=== PATIENT | female | born 1945 | race Caucasian/White ===

== ENCOUNTER → 2018-03-22 12:07 | Outpatient (CLI) | payer MEDICARE, OTHER, SELFPAY | DX: Z23 Encounter for immunization (principal) | CPT/HCPCS: 90471; 90662 ==

== ENCOUNTER → 2018-03-23 15:00 | Outpatient (REF) | payer MEDICARE, OTHER, SELFPAY ==
[2018-03-23 18:15] LABS: Alanine Aminotransferase 45 IU/L (9-52); Aspartate Aminotransferase 30 IU/L (14-36); BUN Creatinine Ratio 27.5 (6-22); Blood Urea Nitrogen 22 mg/dL (7-17); Calcium 9.6 mg/dL (8.4-10.2); Carbon Dioxide 32 mmol/L (22-32); Chloride 101 mmol/L (98-107); Cholesterol 179 mg/dL (140-199); Estimated Glomerular Filt Rate > 60.0 mL/min (>60); Glucose 88 mg/dL (80-110); HDL Cholesterol 65 mg/dL (40-60); HEMOLYSIS < 15 (0-50); LDL Cholesterol Calculated 87 mg/dL (<100); Potassium 4.3 mmol/L (3.4-5.1); Sodium 145 mmol/L (137-145); Triglycerides 135 mg/dL (35-150)
[2018-03-23 18:45] LABS: TSH w/ Reflex to FT4 1.11 uIU/mL (0.47-4.68)
== END ==
LOC: LAB 15:00
PROVIDERS: Family Provider Internal Medicine; PCP Internal Medicine; Visit Provider Internal Medicine
DX: E78.2 Mixed hyperlipidemia (principal)
CPT/HCPCS: 80048; 80061; 84443; 84450; 84460

== ENCOUNTER → 2019-03-05 08:46 | Outpatient (CLI) | payer MEDICARE, OTHER, SELFPAY ==
--- NOTE | 2019-03-05 | DI.MG.S_ITS ---
BILATERAL DIGITAL SCREENING MAMMOGRAM 3D/2D WITH CAD: 03/05/2019 CLINICAL: Routine screening. Comparison is made to exams dated: 04/06/2014 mammogram, 04/29/2010 mammogram, and 02/03/2008 mammogram - [facility]. There are scattered fibroglandular elements in both breasts. Current study was also evaluated with a Computer Aided Detection (CAD) system. No significant masses, calcifications, or other findings are seen in either breast. There has been no significant interval change. IMPRESSION: NEGATIVE There is no mammographic evidence of malignancy. A 1 year screening mammogram is recommended. This exam was interpreted at Station ID: [id number]. NOTE: For mammograms, a report in lay terms will be sent to the patient. Approximately 15% of breast malignancies will not be visualized mammographically. In the management of a palpable breast mass, a negative mammogram must not discourage biopsy of a clinically suspicious lesion. Electronically Signed By: Jennifer moss/linda:03/07/2019 08:37:21 letter sent: Normal Exam ACR BI-RADS Category 1: Negative [id number]
== END ==
PROVIDERS: PCP Internal Medicine; Visit Provider Internal Medicine
DX: Z12.31 Encounter for screening mammogram for malignant neoplasm of breast (principal)
CPT/HCPCS: 77063; 77067

== ENCOUNTER → 2019-03-08 14:56 | Outpatient (CLI) | payer MEDICARE, OTHER, SELFPAY | PROVIDERS: PCP Internal Medicine | DX: Z23 Encounter for immunization (principal) | CPT/HCPCS: 90471; 90662 ==

== ENCOUNTER → 2019-04-13 18:47 | Outpatient (ROUT) | payer MEDICARE, OTHER, SELFPAY ==
[2019-04-13 19:30] LABS: Alanine Aminotransferase 26 IU/L (<35); Aspartate Aminotransferase 29 IU/L (14-36); Blood Urea Nitrogen 20 mg/dL (7-17); Calcium 9.9 mg/dL (8.4-10.2); Carbon Dioxide 32 mmol/L (22-32); Chloride 102 mmol/L (98-107); Cholesterol 179 mg/dL (140-199); Estimated Glomerular Filt Rate > 60.0 mL/min (>60); Glucose 144 mg/dL (80-110); HDL Cholesterol 73 mg/dL (40-60); HEMOLYSIS < 15 (0-50); LDL Cholesterol Calculated 85 mg/dL (<100); Potassium 4.2 mmol/L (3.4-5.1); Sodium 142 mmol/L (137-145); Triglycerides 104 mg/dL (35-150)
[2019-04-13 20:48] LABS: TSH w/ Reflex to FT4 1.84 uIU/mL (0.47-4.68)
== END ==
PROVIDERS: PCP Internal Medicine; Visit Provider Internal Medicine
DX: I10 Essential (primary) hypertension (principal); E03.9 Hypothyroidism, unspecified; E78.2 Mixed hyperlipidemia
CPT/HCPCS: 80048; 80061; 84443; 84450; 84460

== ENCOUNTER → 2019-05-23 17:20 | Outpatient (CLI) | payer MEDICARE, OTHER, SELFPAY | PROVIDERS: PCP Internal Medicine; Visit Provider Physician Assistant | DX: N30.01 Acute cystitis with hematuria (principal) | CPT/HCPCS: 87077; 87086; 87186 ==

== ENCOUNTER 2019-10-27 10:30 | Outpatient (RCR) | payer MEDICARE, OTHER, SELFPAY ==
--- NOTE | 2019-07-08 17:36 | PT.OIE ---
Current Diagnoses Stiffness of right hip, not elsewhere classified (07/08/19) Muscle weakness (generalized) (07/08/19) Mixed incontinence (07/08/19) Unspecified urinary incontinence (07/08/19) Past Medical History (Last Updated 07/02/19 @ 20:40 by Jolie Montana) Colon polyps (Acute) Diverticular disease (Chronic) Frequent UTI (Chronic) Gynecologic disorder (Chronic) H/O vaginal delivery (Acute) Lichen planus (Chronic) Positive PPD (Resolved) Urinary urgency (Chronic) Vision disorder (Chronic) Past Surgical History (Last Updated 07/02/19 @ 20:40 by Jolie Montana) Anesthesia (Resolved) History of colonoscopy (Resolved) Status post surgery (03/10/13) Superficial varicosities (Resolved) Visit Care Team Role Provider Type [place] Givens MD Primary Care Provider Physician Specialty: Internal Medicine Address: [address] [place] [address] Email: [email or web address] Yulisa Lai MD Attending Provider Physician Referring Provider Specialty: GAME BREEDING FARM MANAGER Address: [address] [place] [address], [facility] Email: Physical Therapy Initial Evaluation PT-OP-A Visit Information Start: 07/05/19 17:49 Freq: Status: Active Protocol: Document 07/08/19 15:13 LRN (Rec: 07/08/19 17:26 LRN [id number]) Out-Patient Physical Therapy Visit Information Visit Information Visit Type Initial Evaluation Visit Start Time 15:16 Visit Stop Time 16:16 Total Visit Minutes 60 Visit Number 1 Evaluation Information Evaluation Date 07/08/19 Precautions Precautions Lichen Planus on body and arms /legs from Autoimmune disease, uses cream to control rash but skin itches. PT-OP-B Current Condition Start: 07/05/19 17:49 Freq: Status: Active Protocol: Document 07/08/19 15:13 LRN (Rec: 07/08/19 17:26 LRN [id number]) Current Condition History of Current Condition Onset Date 2 months ago. Current Complaints Bulge in vagina History of Current Condition Lifted furniture for 2 months ago and felt a bulge in vagina . Recently began having UTI's . Currently no UTI, last time was in Dec. Last year UTI's 2-3 times. Now urinates with intermittent peeing, occasionally wets pants trying to get to bathroom; therefore getting anxiety about that. Cold all the time, taking thyroid medications for hypothyroidism . Developmental History Developmental History History: 2 pregnancies and both precepts (quick birthing). Had massage to perineum before birthing; therefore doesn't recall tearing. Has had several urinary tract infections. Lifted furniture 2 months ago and felt vaginal bulge. Treatment Goals Patient/Caregiver Goals Pt goal is to prevent UTI's and to urinate better. Pt goal is to eliminate the bladder bulge. Prior Functional Status Baseline Function- ADL's Independent Baseline Function- Mobility Independent Baseline Function- Other Able to sit and urinate completely. Previously no history of UTI's . Current Functional Impairments (Reported) Functional Limitations- ADL's Lifting due to bulge feeling. Must sit and adjust to fully urinate. Slow trickle urinary stream taking longer to completely urinate. 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 History of hip rotation ROM limitations. PT-OP-C Subjective Start: 07/05/19 17:49 Freq: Status: Active Protocol: Document 07/08/19 15:13 LRN (Rec: 07/08/19 17:26 LRN [id number]) OP-PT Pain Assessment Pain Assessment Grid Paper Pain Assessment Grid Completed Yes Comments Pain Comments Denies pain. Subjectively reports pain with palpation at Perineal body. PT-OP-I Pelvic Floor Start: 07/05/19 17:49 Freq: Status: Active Protocol: Document 07/08/19 15:13 LRN (Rec: 07/08/19 17:26 LRN [id number]) Pelvic Floor Assessment Urine Urinary Symptoms Prolapse,Dribbling After Urination,Incomplete Emptying, Falling Out Feeling/Heavy Leakage Size Medium Leakage Cause Lifting Other Leakage Causes Trigger: Walking in the house when returning home. Voiding Frequency 4-5 Bowel Bowel Surgery No Pelvic Clock Pelvic Clock 6-9 Atrophy Pelvic Clock 9-12 Atrophy Prolapse Cystocele Grade 2 Rectocele Grade 2 Prolapse Comments Retracts with PF contraction Perineal Descent Resting Absent Bearing Present Contraction Ability Voluntary Contraction Weak Manual Muscle Testing Left 2 Manual Muscle Testing Right 1 Manual Muscle Testing Anterior 1 Manual Muscle Testing Posterior 3 Muscle Endurance (Seconds) 3 Comments Pelvic Floor Comments Quick Flicks 5 & 8 times before decreased contraction felt with digital internal palpation. PT-OP-J Posture/Palpation/Skin Start: 07/05/19 17:49 Freq: Status: Active Protocol: Document 07/08/19 15:13 LRN (Rec: 07/08/19 17:26 LRN [id number]) Posture Evaluation Position Standing Evaluation View All positions Head/C-Spine Posture Forward Head T-Spine Posture Increased Kyphosis L-Spine Posture Increased Lordosis Shoulder Posture (L) Rounded,(R) Rounded Pelvis Posture Anteriorly Tilted,(R) Rotated Anterior,(R) ASIS Posterior,(R ) ASIS Inferior Ankle/Foot Posture (R) Forefoot Abducted PT-OP-K Range of Motion Start: 07/05/19 17:49 Freq: Status: Active Protocol: Document 07/08/19 15:13 LRN (Rec: 07/08/19 17:26 LRN [id number]) Lumbar Spine Range of Motion Lumbar Spine Active Degrees Testing Position Standing Flexion 80 Extension 15 ROM Limitations Soft Tissue Tightness Hip Goniometric Range of Motion Hip Right Passive Testing Position Supine Straight Leg Raise 85 Abduction 45 Internal Rotation 30 External Rotation 20 Left Passive Testing Position Supine Straight Leg Raise 85 Abduction 35 Internal Rotation 20 External Rotation 50 PT-OP-M Strength Start: 07/05/19 17:49 Freq: Status: Active Protocol: Document 07/08/19 15:13 LRN (Rec: 07/08/19 17:26 LRN [id number]) Hip Strength Hip Manual Muscle Testing Right Extension (S1) 3 Fair Comments Hip strength 5/5 except those listed above. Left Extension (S1) 3 Fair External Rotation 4 Good Comments Hip strength 5/5 except those listed above. PT-OP-Q Treatments Start: 07/05/19 17:49 Freq: Status: Active Protocol: Document 07/08/19 15:13 LRN (Rec: 07/08/19 17:26 LRN [id number]) Self-Care/Home Management Treatment Education Patient Education Home Exercise Program Other Education Educated pt in Bladder Diary in how to complete for 7 days in a row. Educated and answered questions re: pt in pelvic floor and pelvic cavity anatomy. Educated and answered questions of what else can be done to prevent bulging in vagina: pt instructed in proper clothing wear to reduce stress on pelvic floor. Activities Self-Care/Home Management Activities Issued & reviewed Bladder Diary to complete. Issued & reviewed & discussed Kegel Ex's: Quick Flicks, Long Holds & Aggravators. Discussed methods of PF strengthening (sup w/hips on pillow vs downdog yoga position) and discussed how using a support (a wand) in vaginal canal may be helpful in PF strengthening. PT-OP-T Assessment and Plan Start: 07/05/19 17:49 Freq: Status: Active Protocol: Document 07/08/19 15:13 LRN (Rec: 07/08/19 17:26 LRN [id number]) Physical Therapy Assessment Rehab Potential Rehabilitation Potential Good Evaluation Complexity Number of Personal Factors/Comorbidities 1-2 Number of Body Systems Impaired 4 or More Clinical Presentation at Evaluation Evolving Impairments Impairments Functional Mobility,Posture, ROM,Strength Other Impairments Bulging in vaginal canal. Impaired urination ability. Goals Three Impairment Slow stream when urinating Alf Goal (LTG) Pt will be able to urinate with a normal stream without having to adjust her pelvis. LTG Duration 10/06/19 Two Impairment Bulge in vaginal canal. Short Term Goal (STG) Increase PF strength to 3/5. Ore Charger Goal (LTG) Pt will no longer feel a bulge in the vaginal canal with daily activities. LTG Duration 10/06/19 One Impairment Lacks appropriate HEP Alf Goal (LTG) Pt will be independent in a ongoing self care HEP. LTG Duration 10/06/19 Assessment Summary Assessment Pt presents mild symptoms of stress and urge incontinence, with a grade 2 cystocele and rectocele with bulging into the vaginal canal on coughing while in supine. Pt was not assessed in the standing position. Her symptoms are consistent with a restricted urethra resulting from her cystocele. The pt also appears to have greater weakness of the anterior PF, and she has weakness of both her superficial and deep PF muscles. She appears to have a pelvic obliquity with a R anteriorly rotated innominate, and restricted R hip mobility also hindering her pelvic stability. She has some tightness and tenderness of her transverse perineal body. The pt will benefit from skilled physical therapy to strength her PF muscles to improve pelvic organ support. If the pt is unable to strengthen her PF muscles to provide support needed, then she would benefit from a business performance specialist evaluation for fit of a pessary. Today the pt had many questions regarding her condition and required extra time for education and discussion. Physical Therapy Plan Frequency and Duration Frequency of Treatment 1x/Week Plan of Care Start Date 07/08/19 Plan of Care End Date 10/06/19 Therapeutic Interventions Therapeutic Interventions Home Exercise Program,Joint Mobilizations,Manual Therapy, Patient/Caregiver Education, Self-Care/Home Management,Soft Tissue Mobilization, Therapeutic Exercises Modalities Electric Stimulation Next Visit Focus/Plan Next Note Type Treatment Note Next Visit Plan Review Bladder diary and make recommendations as appropriate . Review Deep Breathing & Kegel ex's. Discuss PF care ( to reduce redness of perineum) . EMG biofeedback for PF strength training and trial of E-Stim with vaginal probe. Start LE roll in/out strengthening. Discuss proper breathing with ADLs to decrease impact on PF.
--- NOTE | 2019-07-08 17:36 | PT.OPPOC ---
Addendum entered and electronically signed by Jennifer Plata, PT 12/26/19 18:27: Resending to provider for signature Original Note: Physical, Occupational & Speech Therapy At [facility] Current Diagnoses Stiffness of right hip, not elsewhere classified (07/08/19) Muscle weakness (generalized) (07/08/19) Mixed incontinence (07/08/19) Unspecified urinary incontinence (07/08/19) Visit Care Team Role Provider Type [place] Givens MD Primary Care Provider Physician Specialty: Internal Medicine Address: [address] [place] [address], [id number] Email: [email or web address] Yulisa Lai MD Attending Provider Physician Referring Provider Specialty: GUEST ADVISOR Address: [address] [place] [address], [id number] Email: Plan Of Care PT-OP-T Assessment and Plan Start: 07/05/19 17:49 Freq: Status: Active Protocol: Document 07/08/19 15:13 LRN (Rec: 07/08/19 17:26 LRN [id number]) Physical Therapy Assessment Rehab Potential Rehabilitation Potential Good Evaluation Complexity Number of Personal Factors/Comorbidities 1-2 Number of Body Systems Impaired 4 or More Clinical Presentation at Evaluation Evolving Impairments Impairments Functional Mobility,Posture, ROM,Strength Other Impairments Bulging in vaginal canal. Impaired urination ability. Goals Three Impairment Slow stream when urinating Control System Manager Goal (LTG) Pt will be able to urinate with a normal stream without having to adjust her pelvis. LTG Duration 10/06/19 Two Impairment Bulge in vaginal canal. Short Term Goal (STG) Increase PF strength to 3/5. Control System Manager Goal (LTG) Pt will no longer feel a bulge in the vaginal canal with daily activities. LTG Duration 10/06/19 One Impairment Lacks appropriate HEP Detention Goal (LTG) Pt will be independent in a ongoing self care HEP. LTG Duration 10/06/19 Assessment Summary Assessment Pt presents mild symptoms of stress and urge incontinence, with a grade 2 cystocele and rectocele with bulging into the vaginal canal on coughing while in supine. Pt was not assessed in the standing position. Her symptoms are consistent with a restricted urethra resulting from her cystocele. The pt also appears to have greater weakness of the anterior PF, and she has weakness of both her superficial and deep PF muscles. She appears to have a pelvic obliquity with a R anteriorly rotated innominate, and restricted R hip mobility also hindering her pelvic stability. She has some tightness and tenderness of her transverse perineal body. The pt will benefit from skilled physical therapy to strength her PF muscles to improve pelvic organ support. If the pt is unable to strengthen her PF muscles to provide support needed, then she would benefit from a informatics physician evaluation for fit of a pessary. Today the pt had many questions regarding her condition and required extra time for education and discussion. Physical Therapy Plan Frequency and Duration Frequency of Treatment 1x/Week Plan of Care Start Date 07/08/19 Plan of Care End Date 10/06/19 Therapeutic Interventions Therapeutic Interventions Home Exercise Program,Joint Mobilizations,Manual Therapy, Patient/Caregiver Education, Self-Care/Home Management,Soft Tissue Mobilization, Therapeutic Exercises Modalities Electric Stimulation Next Visit Focus/Plan Next Note Type Treatment Note Next Visit Plan Review Bladder diary and make recommendations as appropriate . Review Deep Breathing & Kegel ex's. Discuss PF care ( to reduce redness of perineum) . EMG biofeedback for PF strength training and trial of E-Stim with vaginal probe. Start LE roll in/out strengthening. Discuss proper breathing with ADLs to decrease impact on PF. Plan of Care Dates Plan of Care Start Date 07/08/19 Plan of Care End Date 10/06/19 Electronically Signed by: Jennifer Plata, PT 07/08/19 [id number] Please Sign and Return: I have reviewed this Plan of Care and certify that the skilled therapy services above are required to meet the patient?s needs. Physician Signature Date Printed Name and Credentials Clinical Instructor Signature Printed Name and Credentials
--- NOTE | 2019-07-15 16:14 | PT.OTN ---
Current Diagnoses Stiffness of right hip, not elsewhere classified (07/15/19) Muscle weakness (generalized) (07/15/19) Mixed incontinence (07/15/19) Unspecified urinary incontinence (07/15/19) Physical Therapy Treatment Note PT-OP-A Visit Information Start: 07/05/19 17:49 Freq: Status: Active Protocol: Document 07/15/19 15:11 LRN (Rec: 07/15/19 16:09 LRN [id number]) Out-Patient Physical Therapy Visit Information Visit Information Visit Type Treatment Note Visit Start Time 15:11 Visit Stop Time 15:50 Total Visit Minutes 41 Visit Number 2 Evaluation Information Evaluation Date 07/08/19 Precautions Precautions Lichen Planus on body and arms /legs from Autoimmune disease, uses cream to control rash but skin itches. PT-OP-B Current Condition Start: 07/05/19 17:49 Freq: Status: Active Protocol: Document 07/08/19 15:13 LRN (Rec: 07/08/19 17:26 LRN [id number]) Current Condition History of Current Condition Onset Date 2 months ago. Current Complaints Bulge in vagina History of Current Condition Lifted furniture for 2 months ago and felt a bulge in vagina . Recently began having UTI's . Currently no UTI, last time was in May. Last year UTI's 2-3 times. Now urinates with intermittent peeing, occasionally wets pants trying to get to bathroom; therefore getting anxiety about that. Cold all the time, taking thyroid medications for hypothyroidism . Developmental History Developmental History History: 2 pregnancies and both precepts (quick birthing). Had massage to perineum before birthing; therefore doesn't recall tearing. Has had several urinary tract infections. Lifted furniture 2 months ago and felt vaginal bulge. Treatment Goals Patient/Caregiver Goals Pt goal is to prevent UTI's and to urinate better. Pt goal is to eliminate the bladder bulge. Prior Functional Status Baseline Function- ADL's Independent Baseline Function- Mobility Independent Baseline Function- Other Able to sit and urinate completely. Previously no history of UTI's . Current Functional Impairments (Reported) Functional Limitations- ADL's Lifting due to bulge feeling. Must sit and adjust to fully urinate. Slow trickle urinary stream taking longer to completely urinate. 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 History of hip rotation ROM limitations. PT-OP-C Subjective Start: 07/05/19 17:49 Freq: Status: Active Protocol: Document 07/15/19 15:11 LRN (Rec: 07/15/19 16:11 LRN [id number]) OP-PT Subjective Patient Comments Patient Comments States appt time interrupts her sewing. Pt noticed with bladder diary that she is not drinking enough fluids. PT-OP-I Pelvic Floor Start: 07/05/19 17:49 Freq: Status: Active Protocol: Document 07/08/19 15:13 LRN (Rec: 07/08/19 17:26 LRN [id number]) Pelvic Floor Assessment Urine Urinary Symptoms Prolapse,Dribbling After Urination,Incomplete Emptying, Falling Out Feeling/Heavy Leakage Size Medium Leakage Cause Lifting Other Leakage Causes Trigger: Walking in the house when returning home. Voiding Frequency 4-5 Bowel Bowel Surgery No Pelvic Clock Pelvic Clock 6-9 Atrophy Pelvic Clock 9-12 Atrophy Prolapse Cystocele Grade 2 Rectocele Grade 2 Prolapse Comments Retracts with PF contraction Perineal Descent Resting Absent Bearing Present Contraction Ability Voluntary Contraction Weak Manual Muscle Testing Left 2 Manual Muscle Testing Right 1 Manual Muscle Testing Anterior 1 Manual Muscle Testing Posterior 3 Muscle Endurance (Seconds) 3 Comments Pelvic Floor Comments Quick Flicks 5 & 8 times before decreased contraction felt with digital internal palpation. PT-OP-J Posture/Palpation/Skin Start: 07/05/19 17:49 Freq: Status: Active Protocol: Document 07/08/19 15:13 LRN (Rec: 07/08/19 17:26 LRN [id number]) Posture Evaluation Position Standing Evaluation View All positions Head/C-Spine Posture Forward Head T-Spine Posture Increased Kyphosis L-Spine Posture Increased Lordosis Shoulder Posture (L) Rounded,(R) Rounded Pelvis Posture Anteriorly Tilted,(R) Rotated Anterior,(R) ASIS Posterior,(R ) ASIS Inferior Ankle/Foot Posture (R) Forefoot Abducted PT-OP-K Range of Motion Start: 07/05/19 17:49 Freq: Status: Active Protocol: Document 07/08/19 15:13 LRN (Rec: 07/08/19 17:26 LRN [id number]) Lumbar Spine Range of Motion Lumbar Spine Active Degrees Testing Position Standing Flexion 80 Extension 15 ROM Limitations Soft Tissue Tightness Hip Goniometric Range of Motion Hip Right Passive Testing Position Supine Straight Leg Raise 85 Abduction 45 Internal Rotation 30 External Rotation 20 Left Passive Testing Position Supine Straight Leg Raise 85 Abduction 35 Internal Rotation 20 External Rotation 50 PT-OP-M Strength Start: 07/05/19 17:49 Freq: Status: Active Protocol: Document 07/08/19 15:13 LRN (Rec: 07/08/19 17:26 LRN [id number]) Hip Strength Hip Manual Muscle Testing Right Extension (S1) 3 Fair Comments Hip strength 5/5 except those listed above. Left Extension (S1) 3 Fair External Rotation 4 Good Comments Hip strength 5/5 except those listed above. PT-OP-Q Treatments Start: 07/05/19 17:49 Freq: Status: Active Protocol: Document 07/15/19 15:11 LRN (Rec: 07/15/19 16:09 LRN [id number]) Therapeutic Exercises Supine Exercises Kegel Supine Exercise Name I/S for Quick Flicks/Long Holds. Deep Breathing Supine Exercise Name Deep Breathing Reps/Minutes 5' Comments Pt had difficult time belly breathing vs chest breathing. Self-Care/Home Management Treatment Education Patient Education Home Exercise Program Other Education *Reviewed Bladder Diary - 25' Recommended pt increase fluid intake, discussed norm for her body weight (90 oz) and effect of caffeine on fluid intake. *Discussed timing of fluid intake and ending times for drinking before bedtime. *Discussed norm for nighttime voiding. *Educated pt in proper PF care (cleaning, clothing wear). *Discussed effect of breathing with lifting. Activities Self-Care/Home Management Activities Issued & Reviewed Delay Urinary techinque and educated pt in aggravator exercise. Reviewed & I/S pt in Kegel ex' s with handout issued. PT-OP-T Assessment and Plan Start: 07/05/19 17:49 Freq: Status: Active Protocol: Document 07/15/19 15:11 LRN (Rec: 07/15/19 16:09 LRN [id number]) Physical Therapy Assessment Goals Three Impairment Slow stream when urinating Clinical Dietitian Goal (LTG) Pt will be able to urinate with a normal stream without having to adjust her pelvis. LTG Duration 10/06/19 Two Impairment Bulge in vaginal canal. Short Term Goal (STG) Increase PF strength to 3/5. Assisted Goal (LTG) Pt will no longer feel a bulge in the vaginal canal with daily activities. LTG Duration 10/06/19 One Impairment Lacks appropriate HEP Assisted Goal (LTG) Pt will be independent in a ongoing self care HEP. LTG Duration 10/06/19 Assessment Summary Assessment No Bowel dysfunction noted, pt voiding daily and stool is typically type 4. Her anteriorly rotated R innominate was corrected with MET. Ex needed to improve R hip mobility. There is some tightness and tenderness of her transverse perineal body. If the pt is unable to strengthen her PF muscles to provide support needed, then she would benefit from a manager of recruiting evaluation for fit of a pessary. Physical Therapy Plan Frequency and Duration Frequency of Treatment 1x/Week Plan of Care Start Date 07/08/19 Plan of Care End Date 10/06/19 Next Visit Focus/Plan Next Note Type Treatment Note Next Visit Plan Review Bladder diary for fluid intake and voiding frequency. Review Deep Breathing & Kegel ex's. Review proper breathing with ADLs to decrease impact on PF, and check for pelvic stability. Start LE roll in/out strengthening. EMG biofeedback for PF strength training and trial of E-Stim with vaginal probe.
--- NOTE | 2019-07-26 09:21 | PT.OTN ---
Current Diagnoses Stiffness of right hip, not elsewhere classified (07/26/19) Muscle weakness (generalized) (07/26/19) Mixed incontinence (07/26/19) Unspecified urinary incontinence (07/26/19) Physical Therapy Treatment Note PT-OP-A Visit Information Start: 07/05/19 17:49 Freq: Status: Active Protocol: Document 07/26/19 08:17 LRN (Rec: 07/26/19 09:07 LRN [id number]) Out-Patient Physical Therapy Visit Information Visit Information Visit Type Treatment Note Visit Start Time 08:17 Visit Stop Time 09:06 Total Visit Minutes 49 Visit Number 4 Evaluation Information Evaluation Date 07/08/19 Precautions Precautions Lichen Planus on body and arms /legs from Autoimmune disease, uses cream to control rash but skin itches. PT-OP-B Current Condition Start: 07/05/19 17:49 Freq: Status: Active Protocol: Document 07/08/19 15:13 LRN (Rec: 07/08/19 17:26 LRN [id number]) Current Condition History of Current Condition Onset Date 2 months ago. Current Complaints Bulge in vagina History of Current Condition Lifted furniture for 2 months ago and felt a bulge in vagina . Recently began having UTI's . Currently no UTI, last time was in May. Last year UTI's 2-3 times. Now urinates with intermittent peeing, occasionally wets pants trying to get to bathroom; therefore getting anxiety about that. Cold all the time, taking thyroid medications for hypothyroidism . Developmental History Developmental History History: 2 pregnancies and both precepts (quick birthing). Had massage to perineum before birthing; therefore doesn't recall tearing. Has had several urinary tract infections. Lifted furniture 2 months ago and felt vaginal bulge. Treatment Goals Patient/Caregiver Goals Pt goal is to prevent UTI's and to urinate better. Pt goal is to eliminate the bladder bulge. Prior Functional Status Baseline Function- ADL's Independent Baseline Function- Mobility Independent Baseline Function- Other Able to sit and urinate completely. Previously no history of UTI's . Current Functional Impairments (Reported) Functional Limitations- ADL's Lifting due to bulge feeling. Must sit and adjust to fully urinate. Slow trickle urinary stream taking longer to completely urinate. 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 History of hip rotation ROM limitations. PT-OP-C Subjective Start: 07/05/19 17:49 Freq: Status: Active Protocol: Document 07/26/19 08:17 LRN (Rec: 07/26/19 09:07 LRN [id number]) OP-PT Subjective Patient Comments Patient Comments States she forgot her bladder diary. Drinking more water. PT-OP-I Pelvic Floor Start: 07/05/19 17:49 Freq: Status: Active Protocol: Document 07/18/19 15:03 LRN (Rec: 07/18/19 16:22 LRN [id number]) Pelvic Floor Assessment SEMG (uV) Baseline 0.5 Quick Contraction 12 10 Second Contraction 7.5 Relaxation Good Holding Poor/Slow Stability of Hold Poor/Slow SEMG Stability of Rest Good Comments Pelvic Floor Comments Above SEMG values: 10 reps: Quick Flicks & Long Holds. 20 reps: Quick Flicks is Bolster under knees, towel roll to keep electode in place . Avg Work is 11.9 mV's, Avg rest is 3.4 mV's. 20 reps: Long Holds Avg Work is 6.8 mV's, Avg Rest is 1.2 mV's PT-OP-J Posture/Palpation/Skin Start: 07/05/19 17:49 Freq: Status: Active Protocol: Document 07/08/19 15:13 LRN (Rec: 07/08/19 17:26 LRN [id number]) Posture Evaluation Position Standing Evaluation View All positions Head/C-Spine Posture Forward Head T-Spine Posture Increased Kyphosis L-Spine Posture Increased Lordosis Shoulder Posture (L) Rounded,(R) Rounded Pelvis Posture Anteriorly Tilted,(R) Rotated Anterior,(R) ASIS Posterior,(R ) ASIS Inferior Ankle/Foot Posture (R) Forefoot Abducted PT-OP-K Range of Motion Start: 07/05/19 17:49 Freq: Status: Active Protocol: Document 07/08/19 15:13 LRN (Rec: 07/08/19 17:26 LRN [id number]) Lumbar Spine Range of Motion Lumbar Spine Active Degrees Testing Position Standing Flexion 80 Extension 15 ROM Limitations Soft Tissue Tightness Hip Goniometric Range of Motion Hip Right Passive Testing Position Supine Straight Leg Raise 85 Abduction 45 Internal Rotation 30 External Rotation 20 Left Passive Testing Position Supine Straight Leg Raise 85 Abduction 35 Internal Rotation 20 External Rotation 50 PT-OP-M Strength Start: 07/05/19 17:49 Freq: Status: Active Protocol: Document 07/08/19 15:13 LRN (Rec: 07/08/19 17:26 LRN [id number]) Hip Strength Hip Manual Muscle Testing Right Extension (S1) 3 Fair Comments Hip strength 5/5 except those listed above. Left Extension (S1) 3 Fair External Rotation 4 Good Comments Hip strength 5/5 except those listed above. PT-OP-Q Treatments Start: 07/05/19 17:49 Freq: Status: Active Protocol: Document 07/26/19 08:17 LRN (Rec: 07/26/19 09:07 LRN [id number]) Therapeutic Exercises Supine Exercises PF contraction w/ES Supine Exercise Name PF contraction with EMG vaginal electrode Reps/Minutes 15' Comments Intensity 16, 10:10, 50pps Hamstring stretch Supine Exercise Name LE neural Side bilateral Hip ER, R>L Supine Exercise Name Fig 4 stretch, Hip ER, R>L Side right Reps/Minutes 60 x 2 Hip AD stretch, L>R Supine Exercise Name Hip AD stretch, L>R Side left Reps/Minutes 60 x 3 Hip IR stretch L>R Supine Exercise Name Hip IR stretch, L>R Side left Reps/Minutes 60 x 2 Comments Assist needed Self-Care/Home Management Treatment Education Other Education Educated & discussed with pt, bladder diary irritants, handout issued. Activities Self-Care/Home Management Activities Discussed pt's voiding frequency and fluid intake based on pt remembering what she was doing at home. Made recommendations to ways to increase fluid intake. Discussed importance of understanding bladder irritants and effect on bladder. Discussed again avoiding tight clothing and gave recommendation for pt to try a day with loose clothing for effect on bladder. PT-OP-T Assessment and Plan Start: 07/05/19 17:49 Freq: Status: Active Protocol: Document 07/26/19 08:17 LRN (Rec: 07/26/19 09:07 LRN [id number]) Physical Therapy Assessment Goals Three Impairment Slow stream when urinating Residential Goal (LTG) Pt will be able to urinate with a normal stream without having to adjust her pelvis. LTG Duration 10/06/19 Two Impairment Bulge in vaginal canal. Short Term Goal (STG) Increase PF strength to 3/5. Residential Goal (LTG) Pt will no longer feel a bulge in the vaginal canal with daily activities. LTG Duration 10/06/19 One Impairment Lacks appropriate HEP Legal Activity Adjudicator Goal (LTG) Pt will be independent in a ongoing self care HEP. LTG Duration 10/06/19 Assessment Summary Assessment Pt not able to feel a PF contraction with vaginal electrode, possibly intensity not strong enough. Pt had fair response to E-Stim. Pt pants tight around waist. Pt not compliant with bladder diary. Physical Therapy Plan Frequency and Duration Frequency of Treatment 1x/Week Plan of Care Start Date 07/08/19 Plan of Care End Date 10/06/19 Next Visit Focus/Plan Next Note Type Treatment Note Next Visit Plan If pt brings bladder diary, review for fluid intake and voiding frequency. Monitor for pelvic stability. Start with EMG biofeedback for PF strength training and education in pulling in of vaginal electrode vs pushing out. Add HEP for hamstring stretch, & strengthen L hip ER 's. Review proper breathing with ADLs to decrease impact on PF. Review & progress LE roll in/out strengthening as appropriate.
--- NOTE | 2019-07-26 09:28 | PT.OTN ---
Current Diagnoses Stiffness of right hip, not elsewhere classified (07/26/19) Muscle weakness (generalized) (07/26/19) Mixed incontinence (07/26/19) Unspecified urinary incontinence (07/26/19) Physical Therapy Treatment Note PT-OP-A Visit Information Start: 07/05/19 17:49 Freq: Status: Active Protocol: Document 07/26/19 08:17 LRN (Rec: 07/26/19 09:07 LRN [id number]) Out-Patient Physical Therapy Visit Information Visit Information Visit Type Treatment Note Visit Start Time 08:17 Visit Stop Time 09:06 Total Visit Minutes 49 Visit Number 4 Evaluation Information Evaluation Date 07/08/19 Precautions Precautions Lichen Planus on body and arms /legs from Autoimmune disease, uses cream to control rash but skin itches. PT-OP-B Current Condition Start: 07/05/19 17:49 Freq: Status: Active Protocol: Document 07/08/19 15:13 LRN (Rec: 07/08/19 17:26 LRN [id number]) Current Condition History of Current Condition Onset Date 2 months ago. Current Complaints Bulge in vagina History of Current Condition Lifted furniture for 2 months ago and felt a bulge in vagina . Recently began having UTI's . Currently no UTI, last time was in May. Last year UTI's 2-3 times. Now urinates with intermittent peeing, occasionally wets pants trying to get to bathroom; therefore getting anxiety about that. Cold all the time, taking thyroid medications for hypothyroidism . Developmental History Developmental History History: 2 pregnancies and both precepts (quick birthing). Had massage to perineum before birthing; therefore doesn't recall tearing. Has had several urinary tract infections. Lifted furniture 2 months ago and felt vaginal bulge. Treatment Goals Patient/Caregiver Goals Pt goal is to prevent UTI's and to urinate better. Pt goal is to eliminate the bladder bulge. Prior Functional Status Baseline Function- ADL's Independent Baseline Function- Mobility Independent Baseline Function- Other Able to sit and urinate completely. Previously no history of UTI's . Current Functional Impairments (Reported) Functional Limitations- ADL's Lifting due to bulge feeling. Must sit and adjust to fully urinate. Slow trickle urinary stream taking longer to completely urinate. 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 History of hip rotation ROM limitations. PT-OP-C Subjective Start: 07/05/19 17:49 Freq: Status: Active Protocol: Document 07/26/19 08:17 LRN (Rec: 07/26/19 09:07 LRN [id number]) OP-PT Subjective Patient Comments Patient Comments States she forgot her bladder diary. Drinking more water. PT-OP-I Pelvic Floor Start: 07/05/19 17:49 Freq: Status: Active Protocol: Document 07/18/19 15:03 LRN (Rec: 07/18/19 16:22 LRN [id number]) Pelvic Floor Assessment SEMG (uV) Baseline 0.5 Quick Contraction 12 10 Second Contraction 7.5 Relaxation Good Holding Poor/Slow Stability of Hold Poor/Slow SEMG Stability of Rest Good Comments Pelvic Floor Comments Above SEMG values: 10 reps: Quick Flicks & Long Holds. 20 reps: Quick Flicks is Bolster under knees, towel roll to keep electode in place . Avg Work is 11.9 mV's, Avg rest is 3.4 mV's. 20 reps: Long Holds Avg Work is 6.8 mV's, Avg Rest is 1.2 mV's PT-OP-J Posture/Palpation/Skin Start: 07/05/19 17:49 Freq: Status: Active Protocol: Document 07/08/19 15:13 LRN (Rec: 07/08/19 17:26 LRN [id number]) Posture Evaluation Position Standing Evaluation View All positions Head/C-Spine Posture Forward Head T-Spine Posture Increased Kyphosis L-Spine Posture Increased Lordosis Shoulder Posture (L) Rounded,(R) Rounded Pelvis Posture Anteriorly Tilted,(R) Rotated Anterior,(R) ASIS Posterior,(R ) ASIS Inferior Ankle/Foot Posture (R) Forefoot Abducted PT-OP-K Range of Motion Start: 07/05/19 17:49 Freq: Status: Active Protocol: Document 07/08/19 15:13 LRN (Rec: 07/08/19 17:26 LRN [id number]) Lumbar Spine Range of Motion Lumbar Spine Active Degrees Testing Position Standing Flexion 80 Extension 15 ROM Limitations Soft Tissue Tightness Hip Goniometric Range of Motion Hip Right Passive Testing Position Supine Straight Leg Raise 85 Abduction 45 Internal Rotation 30 External Rotation 20 Left Passive Testing Position Supine Straight Leg Raise 85 Abduction 35 Internal Rotation 20 External Rotation 50 PT-OP-M Strength Start: 07/05/19 17:49 Freq: Status: Active Protocol: Document 07/08/19 15:13 LRN (Rec: 07/08/19 17:26 LRN [id number]) Hip Strength Hip Manual Muscle Testing Right Extension (S1) 3 Fair Comments Hip strength 5/5 except those listed above. Left Extension (S1) 3 Fair External Rotation 4 Good Comments Hip strength 5/5 except those listed above. PT-OP-Q Treatments Start: 07/05/19 17:49 Freq: Status: Active Protocol: Document 07/26/19 08:17 LRN (Rec: 07/26/19 09:07 LRN [id number]) Therapeutic Exercises Supine Exercises PF contraction w/ES Supine Exercise Name PF contraction with EMG vaginal electrode Reps/Minutes 15' Comments Intensity 16, 10:10, 50pps Hamstring stretch Supine Exercise Name LE neural Side bilateral Hip ER, R>L Supine Exercise Name Fig 4 stretch, Hip ER, R>L Side right Reps/Minutes 60 x 2 Hip AD stretch, L>R Supine Exercise Name Hip AD stretch, L>R Side left Reps/Minutes 60 x 3 Hip IR stretch L>R Supine Exercise Name Hip IR stretch, L>R Side left Reps/Minutes 60 x 2 Comments Assist needed Self-Care/Home Management Treatment Education Other Education Educated & discussed with pt, bladder diary irritants, handout issued. Activities Self-Care/Home Management Activities Discussed pt's voiding frequency and fluid intake based on pt remembering what she was doing at home. Made recommendations to ways to increase fluid intake. Discussed importance of understanding bladder irritants and effect on bladder. Discussed again avoiding tight clothing and gave recommendation for pt to try a day with loose clothing for effect on bladder. Issued & reviewed HEP: Hip stretches for ER/IR and hip AD 's. PT-OP-T Assessment and Plan Start: 07/05/19 17:49 Freq: Status: Active Protocol: Document 07/26/19 08:17 LRN (Rec: 07/26/19 09:07 LRN [id number]) Physical Therapy Assessment Goals Three Impairment Slow stream when urinating Group Home Goal (LTG) Pt will be able to urinate with a normal stream without having to adjust her pelvis. LTG Duration 10/06/19 Two Impairment Bulge in vaginal canal. Short Term Goal (STG) Increase PF strength to 3/5. Group Home Goal (LTG) Pt will no longer feel a bulge in the vaginal canal with daily activities. LTG Duration 10/06/19 One Impairment Lacks appropriate HEP Group Home Goal (LTG) Pt will be independent in a ongoing self care HEP. LTG Duration 10/06/19 Assessment Summary Assessment Pt not able to feel a PF contraction with vaginal electrode, possibly intensity not strong enough. Pt had fair response to E-Stim. Pt pants tight around waist. Pt not compliant with bladder diary. Physical Therapy Plan Frequency and Duration Frequency of Treatment 1x/Week Plan of Care Start Date 07/08/19 Plan of Care End Date 10/06/19 Next Visit Focus/Plan Next Note Type Treatment Note Next Visit Plan If pt brings bladder diary, review for fluid intake and voiding frequency. Monitor for pelvic stability. Start with EMG biofeedback for PF strength training and education in pulling in of vaginal electrode vs pushing out. Add HEP for hamstring stretch, & strengthen L hip ER 's. Review proper breathing with ADLs to decrease impact on PF. Review & progress LE roll in/out strengthening as appropriate.
--- NOTE | 2019-08-04 16:26 | PT.OTN ---
Current Diagnoses Stiffness of right hip, not elsewhere classified (08/04/19) Muscle weakness (generalized) (08/04/19) Mixed incontinence (08/04/19) Unspecified urinary incontinence (08/04/19) Physical Therapy Treatment Note PT-OP-A Visit Information Start: 07/05/19 17:49 Freq: Status: Active Protocol: Document 08/04/19 15:03 LRN (Rec: 08/04/19 16:23 LRN [id number]) Out-Patient Physical Therapy Visit Information Visit Information Visit Type Treatment Note Visit Start Time 15:03 Visit Stop Time 15:45 Total Visit Minutes 42 Visit Number 5 Evaluation Information Evaluation Date 07/08/19 Precautions Precautions Lichen Planus on body and arms /legs from Autoimmune disease, uses cream to control rash but skin itches. PT-OP-B Current Condition Start: 07/05/19 17:49 Freq: Status: Active Protocol: Document 07/08/19 15:13 LRN (Rec: 07/08/19 17:26 LRN [id number]) Current Condition History of Current Condition Onset Date 2 months ago. Current Complaints Bulge in vagina History of Current Condition Lifted furniture for 2 months ago and felt a bulge in vagina . Recently began having UTI's . Currently no UTI, last time was in May. Last year UTI's 2-3 times. Now urinates with intermittent peeing, occasionally wets pants trying to get to bathroom; therefore getting anxiety about that. Cold all the time, taking thyroid medications for hypothyroidism . Developmental History Developmental History History: 2 pregnancies and both precepts (quick birthing). Had massage to perineum before birthing; therefore doesn't recall tearing. Has had several urinary tract infections. Lifted furniture 2 months ago and felt vaginal bulge. Treatment Goals Patient/Caregiver Goals Pt goal is to prevent UTI's and to urinate better. Pt goal is to eliminate the bladder bulge. Prior Functional Status Baseline Function- ADL's Independent Baseline Function- Mobility Independent Baseline Function- Other Able to sit and urinate completely. Previously no history of UTI's . Current Functional Impairments (Reported) Functional Limitations- ADL's Lifting due to bulge feeling. Must sit and adjust to fully urinate. Slow trickle urinary stream taking longer to completely urinate. 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 History of hip rotation ROM limitations. PT-OP-C Subjective Start: 07/05/19 17:49 Freq: Status: Active Protocol: Document 08/04/19 15:03 LRN (Rec: 08/04/19 16:23 LRN [id number]) OP-PT Subjective Patient Comments Patient Comments Less urgency. 4/7 good days. States there is no change with nighttime voiding; therefore is not doing a bladder diary. PT-OP-I Pelvic Floor Start: 07/05/19 17:49 Freq: Status: Active Protocol: Document 08/04/19 15:03 LRN (Rec: 08/04/19 16:23 LRN [id number]) Pelvic Floor Assessment SEMG (uV) Baseline 0.9 PT-OP-J Posture/Palpation/Skin Start: 07/05/19 17:49 Freq: Status: Active Protocol: Document 07/08/19 15:13 LRN (Rec: 07/08/19 17:26 LRN [id number]) Posture Evaluation Position Standing Evaluation View All positions Head/C-Spine Posture Forward Head T-Spine Posture Increased Kyphosis L-Spine Posture Increased Lordosis Shoulder Posture (L) Rounded,(R) Rounded Pelvis Posture Anteriorly Tilted,(R) Rotated Anterior,(R) ASIS Posterior,(R ) ASIS Inferior Ankle/Foot Posture (R) Forefoot Abducted PT-OP-K Range of Motion Start: 07/05/19 17:49 Freq: Status: Active Protocol: Document 07/08/19 15:13 LRN (Rec: 07/08/19 17:26 LRN [id number]) Lumbar Spine Range of Motion Lumbar Spine Active Degrees Testing Position Standing Flexion 80 Extension 15 ROM Limitations Soft Tissue Tightness Hip Goniometric Range of Motion Hip Right Passive Testing Position Supine Straight Leg Raise 85 Abduction 45 Internal Rotation 30 External Rotation 20 Left Passive Testing Position Supine Straight Leg Raise 85 Abduction 35 Internal Rotation 20 External Rotation 50 PT-OP-M Strength Start: 07/05/19 17:49 Freq: Status: Active Protocol: Document 07/08/19 15:13 LRN (Rec: 07/08/19 17:26 LRN [id number]) Hip Strength Hip Manual Muscle Testing Right Extension (S1) 3 Fair Comments Hip strength 5/5 except those listed above. Left Extension (S1) 3 Fair External Rotation 4 Good Comments Hip strength 5/5 except those listed above. PT-OP-Q Treatments Start: 07/05/19 17:49 Freq: Status: Active Protocol: Document 08/04/19 15:03 LRN (Rec: 08/04/19 16:23 LRN [id number]) Therapeutic Exercises Supine Exercises Hip ER strengthening Supine Exercise Name BKFO Side bilateral Resistance Lev 3 T-Band Reps/Minutes 10-15x PF contraction w/hip AB Supine Exercise Name PF contraction w/hip AB Side bilateral Equipment Used Lev 2 PF contraction w/hip AD Supine Exercise Name PF contraction with ball squeeze Side bilateral Reps/Minutes Hold 6 x 5 LE Roll in/out with Kegel & Deep breath Supine Exercise Name LE Roll in/out with Kegel & Deep breath Reps/Minutes 3' Comments Pt was unable to coordinate all components of LE roll in/ out Hamstring stretch Supine Exercise Name LE neural Side bilateral LE Roll in/out w/Deep Breath Supine Exercise Name LE roll in/out w/deep breathing Reps/Minutes 6' Kegel Supine Exercise Name Long Holds w/EMG Biofeedback Reps/Minutes 15' Comments Bolster under knees. Deep Breathing Supine Exercise Name Review Deep Breathing Reps/Minutes 1' Neuro Re-Education Treatment Coordination Activities PF contraction Details Pulling in/up of PF & coordination of breathing and PF contraction Equipment EMG Biofeedback Reps/Duration 8' Comments Visual biofeedback for slow progressive contraction and pulling up of PF. Self-Care/Home Management Treatment Education Patient Education Home Exercise Program Activities Self-Care/Home Management Activities Issued & reviewed HEP: LE neural stretch and written I/S for hip ER strengthening with T-Band for BKFO. Issued Lev 2 T-Band for home ex. PT-OP-T Assessment and Plan Start: 07/05/19 17:49 Freq: Status: Active Protocol: Document 08/04/19 15:03 LRN (Rec: 08/04/19 16:23 LRN [id number]) Physical Therapy Assessment Goals Three Impairment Slow stream when urinating Assembler Seat Goal (LTG) Pt will be able to urinate with a normal stream without having to adjust her pelvis. LTG Duration 10/06/19 Two Impairment Bulge in vaginal canal. Short Term Goal (STG) Increase PF strength to 3/5. Assembler Seat Goal (LTG) Pt will no longer feel a bulge in the vaginal canal with daily activities. LTG Duration 10/06/19 One Impairment Lacks appropriate HEP Senior Living Goal (LTG) Pt will be independent in a ongoing self care HEP. LTG Duration 10/06/19 (3/5 Progressing) Assessment Summary Assessment Pt is not wanting to do the bladder diary anymore; therefore unable to monitor fluid intake & voiding. Pt notes less urgency. Pt has fair control of her PF contraction. Physical Therapy Plan Frequency and Duration Frequency of Treatment 1x/Week Plan of Care Start Date 07/08/19 Plan of Care End Date 10/06/19 Next Visit Focus/Plan Next Note Type Treatment Note Next Visit Plan Review proper breathing with ADLs to decrease impact on PF. Review hamstring stretch & hip ER strengthening (L>R), & progress LE roll in/out strengthening as appropriate.
--- NOTE | 2019-08-11 16:25 | PT.OTN ---
Current Diagnoses Stiffness of right hip, not elsewhere classified (08/11/19) Muscle weakness (generalized) (08/11/19) Mixed incontinence (08/11/19) Unspecified urinary incontinence (08/11/19) Physical Therapy Treatment Note PT-OP-A Visit Information Start: 07/05/19 17:49 Freq: Status: Active Protocol: Document 08/11/19 15:00 LRN (Rec: 08/11/19 16:23 LRN [id number]) Out-Patient Physical Therapy Visit Information Visit Information Visit Type Treatment Note Visit Start Time 15:00 Visit Stop Time 15:50 Total Visit Minutes 50 Visit Number 6 Evaluation Information Evaluation Date 07/08/19 Precautions Precautions Lichen Planus on body and arms /legs from Autoimmune disease, uses cream to control rash but skin itches. PT-OP-B Current Condition Start: 07/05/19 17:49 Freq: Status: Active Protocol: Document 07/08/19 15:13 LRN (Rec: 07/08/19 17:26 LRN [id number]) Current Condition History of Current Condition Onset Date 2 months ago. Current Complaints Bulge in vagina History of Current Condition Lifted furniture for 2 months ago and felt a bulge in vagina . Recently began having UTI's . Currently no UTI, last time was in May. Last year UTI's 2-3 times. Now urinates with intermittent peeing, occasionally wets pants trying to get to bathroom; therefore getting anxiety about that. Cold all the time, taking thyroid medications for hypothyroidism . Developmental History Developmental History History: 2 pregnancies and both precepts (quick birthing). Had massage to perineum before birthing; therefore doesn't recall tearing. Has had several urinary tract infections. Lifted furniture 2 months ago and felt vaginal bulge. Treatment Goals Patient/Caregiver Goals Pt goal is to prevent UTI's and to urinate better. Pt goal is to eliminate the bladder bulge. Prior Functional Status Baseline Function- ADL's Independent Baseline Function- Mobility Independent Baseline Function- Other Able to sit and urinate completely. Previously no history of UTI's . Current Functional Impairments (Reported) Functional Limitations- ADL's Lifting due to bulge feeling. Must sit and adjust to fully urinate. Slow trickle urinary stream taking longer to completely urinate. 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 History of hip rotation ROM limitations. PT-OP-C Subjective Start: 07/05/19 17:49 Freq: Status: Active Protocol: Document 08/11/19 15:00 LRN (Rec: 08/11/19 16:23 LRN [id number]) OP-PT Subjective Patient Comments Patient Comments States she hasn't done the hamstring stretches. She is not sure she is doing the LE roll in outs correctly. PT-OP-I Pelvic Floor Start: 07/05/19 17:49 Freq: Status: Active Protocol: Document 08/04/19 15:03 LRN (Rec: 08/04/19 16:23 LRN [id number]) Pelvic Floor Assessment SEMG (uV) Baseline 0.9 PT-OP-J Posture/Palpation/Skin Start: 07/05/19 17:49 Freq: Status: Active Protocol: Document 07/08/19 15:13 LRN (Rec: 07/08/19 17:26 LRN [id number]) Posture Evaluation Position Standing Evaluation View All positions Head/C-Spine Posture Forward Head T-Spine Posture Increased Kyphosis L-Spine Posture Increased Lordosis Shoulder Posture (L) Rounded,(R) Rounded Pelvis Posture Anteriorly Tilted,(R) Rotated Anterior,(R) ASIS Posterior,(R ) ASIS Inferior Ankle/Foot Posture (R) Forefoot Abducted PT-OP-K Range of Motion Start: 07/05/19 17:49 Freq: Status: Active Protocol: Document 07/08/19 15:13 LRN (Rec: 07/08/19 17:26 LRN [id number]) Lumbar Spine Range of Motion Lumbar Spine Active Degrees Testing Position Standing Flexion 80 Extension 15 ROM Limitations Soft Tissue Tightness Hip Goniometric Range of Motion Hip Right Passive Testing Position Supine Straight Leg Raise 85 Abduction 45 Internal Rotation 30 External Rotation 20 Left Passive Testing Position Supine Straight Leg Raise 85 Abduction 35 Internal Rotation 20 External Rotation 50 PT-OP-M Strength Start: 07/05/19 17:49 Freq: Status: Active Protocol: Document 07/08/19 15:13 LRN (Rec: 07/08/19 17:26 LRN [id number]) Hip Strength Hip Manual Muscle Testing Right Extension (S1) 3 Fair Comments Hip strength 5/5 except those listed above. Left Extension (S1) 3 Fair External Rotation 4 Good Comments Hip strength 5/5 except those listed above. PT-OP-Q Treatments Start: 07/05/19 17:49 Freq: Status: Active Protocol: Document 08/11/19 15:00 LRN (Rec: 08/11/19 16:23 LRN [id number]) Therapeutic Exercises Supine Exercises Hip ER strengthening Supine Exercise Name BKFO Side bilateral Resistance Lev 2 T-Band Reps/Minutes 10x 3 Comments Alternating holding PF contraction every 10 reps PF contraction w/hip AB Supine Exercise Name PF contraction w/hip AB Side bilateral Equipment Used Lev 2 Reps/Minutes 10 x 3 Comments PF contraction 10 reps, every other 10 reps. PF contraction w/hip AD Supine Exercise Name Hip AD w/PF contraction Equipment Used Lev 2 Reps/Minutes 10 x 3 Comments PF contraction 10 reps, every other 10 reps. LE Roll in/out with Kegel & Deep breath Supine Exercise Name LE Roll in/out with Kegel & Deep breath Reps/Minutes 3' Comments Pt was unable to coordinate all components of LE roll in/ out Hamstring stretch Supine Exercise Name LE neural Side bilateral Reps/Minutes 4' Hip ER, R>L Supine Exercise Name Fig 4 stretch, Hip ER, R>L Side right Reps/Minutes 60 x 1 Hip AD stretch, L>R Supine Exercise Name Hip AD stretch, L>R Side left Reps/Minutes 60 x 3 Hip IR stretch L>R Supine Exercise Name Hip IR stretch, R>L Side bilateral Reps/Minutes 60 x 2 Comments Assist needed LE Roll in/out w/Deep Breath Supine Exercise Name LE roll in/out w/deep breathing Reps/Minutes 6' Deep Breathing Supine Exercise Name Review Deep Breathing Reps/Minutes 1' Self-Care/Home Management Treatment Education Patient Education Home Exercise Program,Posture Other Education Educated pt in abdominal breathing and pistoning effect . Educated pt in anatomy of PF with connection to hip musculature. Activities Self-Care/Home Management Activities Issued & reviewed with pt sidelie: Clamshell & hip AD PF strengthening for lateral matias. PT-OP-T Assessment and Plan Start: 07/05/19 17:49 Freq: Status: Active Protocol: Document 08/11/19 15:00 LRN (Rec: 08/11/19 16:23 LRN [id number]) Physical Therapy Assessment Goals Three Impairment Slow stream when urinating Wood Heel Fitter Machine Goal (LTG) Pt will be able to urinate with a normal stream without having to adjust her pelvis. LTG Duration 10/06/19 Two Impairment Bulge in vaginal canal. Short Term Goal (STG) Increase PF strength to 3/5. Wood Heel Fitter Machine Goal (LTG) Pt will no longer feel a bulge in the vaginal canal with daily activities. LTG Duration 10/06/19 One Impairment Lacks appropriate HEP Wood Heel Fitter Machine Goal (LTG) Pt will be independent in a ongoing self care HEP. LTG Duration 10/06/19 (08/20/19: Progressing) Assessment Summary Assessment Pt is not being consistent with her HEP and is unfamiliar with ex's. Pt is able to feel the PF contract more easily when hips are elevated. Physical Therapy Plan Frequency and Duration Frequency of Treatment 1x/Week Plan of Care Start Date 07/08/19 Plan of Care End Date 10/06/19 Next Visit Focus/Plan Next Note Type Treatment Note Next Visit Plan Review proper breathing with ADLs (sit to stand, bending over, lifting....) to decrease impact on PF. Review hamstring stretch, hip ER strengthening (L>R), and PF w/ hip AD/AD strengthening. Progress LE roll in/out strengthening as appropriate.
--- NOTE | 2019-08-18 17:15 | PT-OP ANOTE ---
Per telephone conversation, pt was informed of hospital recommendations to place on hold therapy appts for pt's>65 yrs old for 2 weeks due to CoVID-19. Pt agreeable and will keep appt on 09/02/19, but will call before coming to see if she should still come.
--- NOTE | 2019-10-13 16:42 | PT.OTN ---
Current Diagnoses Stiffness of right hip, not elsewhere classified (10/13/19) Muscle weakness (generalized) (10/13/19) Mixed incontinence (10/13/19) Unspecified urinary incontinence (10/13/19) Physical Therapy Treatment Note PT-OP-A Visit Information Start: 07/05/19 17:49 Freq: Status: Active Protocol: Document 10/13/19 09:02 LRN (Rec: 10/13/19 10:32 LRN [id number]) Out-Patient Physical Therapy Visit Information Visit Information Visit Type Progress Note Visit Note Extra time taken during placement and removal of vaginal electrode. Visit Start Time 09:02 Visit Stop Time 10:01 Total Visit Minutes 59 Visit Number 7 Evaluation Information Evaluation Date 07/08/19 Precautions Precautions Lichen Planus on body and arms /legs from Autoimmune disease, uses cream to control rash but skin itches. PT-OP-B Current Condition Start: 07/05/19 17:49 Freq: Status: Active Protocol: Document 10/13/19 09:02 LRN (Rec: 10/13/19 10:32 LRN [id number]) Current Condition History of Current Condition Onset Date 2 months ago. Current Complaints Bulge in vagina History of Current Condition Lifted furniture for 2 months ago and felt a bulge in vagina . Recently began having UTI's . Currently no UTI, last time was in May. Last year UTI's 2-3 times. Now urinates with intermittent peeing, occasionally wets pants trying to get to bathroom; therefore getting anxiety about that. Cold all the time, taking thyroid medications for hypothyroidism . 10/13/19: Pt returns following clinic closure due to Covid 19 pandemic. Current condition: Pt feeling more bulging of bladder. Reduction of urge incontinence with initial return home (boo indoor trigger) and elimination of urge incontinence with trigger of running water. No UTI's during community isolation precautions. Urination: able to empty bladder with 2-3 times repositioning to empty. Developmental History Developmental History History: 2 pregnancies and both precepts (quick birthing). Had massage to perineum before birthing; therefore doesn't recall tearing. Has had several urinary tract infections. Lifted furniture 2 months ago and felt vaginal bulge. Treatment Goals Patient/Caregiver Goals Pt goal is to urinate better. Pt goal is to eliminate the bladder bulge. 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 History of hip rotation ROM limitations. PT-OP-C Subjective Start: 07/05/19 17:49 Freq: Status: Active Protocol: Document 10/13/19 09:02 LRN (Rec: 10/13/19 10:32 LRN [id number]) OP-PT Subjective Patient Comments Patient Comments Thinks everything is falling out more. Can feel it falling out. Has been intermittent with exercise. R hip sore since doing hip BKFO ex and can't do hip ER stretch. Patient Questionnaires Pelvic Pain and Urgency/Frequency Patient Symptom Scale Pelvic Pain Score 2 PT-OP-I Pelvic Floor Start: 07/05/19 17:49 Freq: Status: Active Protocol: Document 10/13/19 09:02 LRN (Rec: 10/13/19 10:32 LRN [id number]) Pelvic Floor Assessment SEMG (uV) Baseline 1.1 Quick Contraction 9.0 10 Second Contraction 9.4 Recruitment Pattern Good Holding Fair Stability of Hold Fair SEMG Stability of Rest Good Contraction Ability Voluntary Contraction Moderate Comments Pelvic Floor Comments Hands behind head during baseline. Pt had to be instructed to keep arms by sides during Quick and Long holds of 10 reps. Long holds Avg rest 1.4uV's Pt needed cuing to not breath hold for Long Holds/Quick contractions. PT-OP-J Posture/Palpation/Skin Start: 07/05/19 17:49 Freq: Status: Active Protocol: Document 10/13/19 09:02 LRN (Rec: 10/13/19 10:32 LRN [id number]) Posture Evaluation Position Standing Evaluation View All positions Head/C-Spine Posture Forward Head T-Spine Posture Increased Kyphosis L-Spine Posture Increased Lordosis Shoulder Posture (L) Rounded,(R) Rounded Pelvis Posture Anteriorly Tilted,(R) Rotated Anterior,(R) ASIS Posterior,(R ) ASIS Inferior Ankle/Foot Posture (R) Forefoot Abducted Palpation Assessment Location R hip Palpation Location R lateral hip Palpation Findings Tenderness Palpation Details Piriformis, Lateral hip ms PT-OP-K Range of Motion Start: 07/05/19 17:49 Freq: Status: Active Protocol: Document 10/13/19 09:02 LRN (Rec: 10/13/19 10:32 LRN [id number]) Hip Goniometric Range of Motion Hip Right Passive Abduction 35 Internal Rotation 30 External Rotation 35 Left Passive Abduction 35 Internal Rotation 30 External Rotation 65 PT-OP-M Strength Start: 07/05/19 17:49 Freq: Status: Active Protocol: Document 07/08/19 15:13 LRN (Rec: 07/08/19 17:26 LRN [id number]) Hip Strength Hip Manual Muscle Testing Right Extension (S1) 3 Fair Comments Hip strength 5/5 except those listed above. Left Extension (S1) 3 Fair External Rotation 4 Good Comments Hip strength 5/5 except those listed above. PT-OP-Q Treatments Start: 07/05/19 17:49 Freq: Status: Active Protocol: Document 10/13/19 09:02 LRN (Rec: 10/13/19 10:32 LRN [id number]) Therapeutic Exercises Supine Exercises Hip ER, R>L Supine Exercise Name Hip ER stretch Side right Comments Multi angles stretching with cuing to help pt find most needed position Hip IR stretch L>R Supine Exercise Name Hip IR stretch Side right Reps/Minutes 3' Comments Taught pt limits of stretch and comparisons L hip. Sitting Exercises Hip ER Sitting Exercise Name Hip ER stretch f/b active stretch R>L Side bilateral Comments Discussion and I/S needed to determine appropriate stretch amount Neuro Re-Education Treatment Other Activities PF strengthening Details PF strengthening with visual biofeedback Comments Pt used visual biofeedback with quick contractions. Long holds cuing needed for not breath holding. Encouragement needed for strengthening ex's. Self-Care/Home Management Treatment Education Patient Education Home Exercise Program Other Education Reviewed HEP of deep breathing during ex and at end of day for proper sequencing of abdomen with breath. Reviewed LE roll in/out for repetitions and in importance of being consistent with exercises for confidence in purpose of ex's. Activities Self-Care/Home Management Activities Issued & reviewed HEP of Piriformis/hip ER stretch with focus on R hip. Extra time taken to provide appropriate stretch in direction of most tightness. Same done in supine and sitting. Extra time taken to encourage pt to discuss 2x daily necessity and how to encorporate during daily activities. PT-OP-T Assessment and Plan Start: 07/05/19 17:49 Freq: Status: Active Protocol: Document 10/13/19 09:02 LRN (Rec: 10/13/19 10:32 LRN [id number]) Physical Therapy Assessment Rehab Potential Rehabilitation Potential Good Evaluation Complexity Number of Personal Factors/Comorbidities 1-2 Number of Body Systems Impaired 4 or More Clinical Presentation at Evaluation Evolving Impairments Impairments Functional Mobility,Posture, ROM,Strength Other Impairments Bulging in vaginal canal. Impaired urination ability. Decreased hip mobility Decreased follow through of exercises partly due to stresses of Covid-19 Pandemic. Goals Three Impairment Slow stream when urinating Riverboat Captain Goal (LTG) Pt will be able to urinate with a normal stream without having to adjust her pelvis. 10/13/19: Pt able to feel completed void after 3 stop/ start times on toilet during voiding. LTG Duration 12/06/19 Two Impairment Bulge in vaginal canal. Short Term Goal (STG) Increase PF strength to 3/5. STG Duration 11/10/19 Mcc Goal (LTG) Pt will no longer feel a bulge in the vaginal canal with daily activities. 10/13/19: Pt feels bulging is worse but is able to pull bladder up when performing a PF contraction. LTG Duration 12/06/19 One Impairment Lacks appropriate HEP Mcc Goal (LTG) Pt will be independent in a ongoing self care HEP. LTG Duration 12/06/19 (10/13/19: Progressing) Assessment Summary Assessment Pt returns after therapy program was interrupted due to Covid 19 social distancing mandate. Today pt reports being better with consistency of HEP, but admits she is better at doing them but does not do them daily. Pt shows increased PF endurance strength during EMG biofeedback of 9.4uV's avg work (was 7.5uV's). Resting tone shows no change. Her Quick Flick contractions are weaker with strength of 9uV's (initially was 12uV's). Pt has been able to reduce her urgency with triggers and is now able to make it to the toilet on returning home and no longer has trouble with triggering from running water. The pt would benefit from further PF strengthening if she can be compliant with exercises and functional changes. The pt's has good potential to improve if she is able to be consistent with exercises. Extra time needed for sanitizing hands before and after treatment. Physical Therapy Plan Frequency and Duration Frequency of Treatment 1x/Week Plan of Care Start Date 07/08/19 Plan of Care End Date 12/06/19 Therapeutic Interventions Therapeutic Interventions Home Exercise Program,Joint Mobilizations,Manual Therapy, Patient/Caregiver Education, Self-Care/Home Management,Soft Tissue Mobilization, Therapeutic Exercises Modalities Electric Stimulation Next Visit Focus/Plan Next Note Type Treatment Note Next Visit Plan Review previously issued HEP for proper performance and compliance. Progress PF strengthening utilizing functional activities. Address appropriate clothing wear, and use of breath work for activities. Check for improvement in hip ER mobility . Progress LE roll in/out activities.
--- NOTE | 2019-10-13 16:42 | PT.OPPOC ---
Physical, Occupational & Speech Therapy At [facility] Current Diagnoses Stiffness of right hip, not elsewhere classified (10/13/19) Muscle weakness (generalized) (10/13/19) Mixed incontinence (10/13/19) Unspecified urinary incontinence (10/13/19) Visit Care Team Role Provider Type [place] Givens MD Primary Care Provider Physician Specialty: Internal Medicine Address: [address] [place] [address], [id number] Email: [email or web address] Yulisa Lai MD Attending Provider Physician Referring Provider Specialty: ASSISTANT DIRECTOR OF SECURITY Address: [address] [place] [address], [id number] Email: Plan Of Care PT-OP-T Assessment and Plan Start: 07/05/19 17:49 Freq: Status: Active Protocol: Document 10/13/19 09:02 LRN (Rec: 10/13/19 10:32 LRN [id number]) Physical Therapy Assessment Rehab Potential Rehabilitation Potential Good Evaluation Complexity Number of Personal Factors/Comorbidities 1-2 Number of Body Systems Impaired 4 or More Clinical Presentation at Evaluation Evolving Impairments Impairments Functional Mobility,Posture, ROM,Strength Other Impairments Bulging in vaginal canal. Impaired urination ability. Decreased hip mobility Decreased follow through of exercises partly due to stresses of Covid-19 Pandemic. Goals Three Impairment Slow stream when urinating [facility] Goal (LTG) Pt will be able to urinate with a normal stream without having to adjust her pelvis. 10/13/19: Pt able to feel completed void after 3 stop/ start times on toilet during voiding. LTG Duration 12/06/19 Two Impairment Bulge in vaginal canal. Short Term Goal (STG) Increase PF strength to 3/5. STG Duration 11/10/19 Unified Communications Architect Goal (LTG) Pt will no longer feel a bulge in the vaginal canal with daily activities. 10/13/19: Pt feels bulging is worse but is able to pull bladder up when performing a PF contraction. LTG Duration 12/06/19 One Impairment Lacks appropriate HEP Unified Communications Architect Goal (LTG) Pt will be independent in a ongoing self care HEP. LTG Duration 12/06/19 (10/13/19: Progressing) Assessment Summary Assessment Pt returns after therapy program was interrupted due to Covid 19 social distancing mandate. Today pt reports being better with consistency of HEP, but admits she is better at doing them but does not do them daily. Pt shows increased PF endurance strength during EMG biofeedback of 9.4uV's avg work (was 7.5uV's). Resting tone shows no change. Her Quick Flick contractions are weaker with strength of 9uV's (initially was 12uV's). Pt has been able to reduce her urgency with triggers and is now able to make it to the toilet on returning home and no longer has trouble with triggering from running water. The pt would benefit from further PF strengthening if she can be compliant with exercises and functional changes. The pt's has good potential to improve if she is able to be consistent with exercises. Extra time needed for sanitizing hands before and after treatment. Physical Therapy Plan Frequency and Duration Frequency of Treatment 1x/Week Plan of Care Start Date 07/08/19 Plan of Care End Date 12/06/19 Therapeutic Interventions Therapeutic Interventions Home Exercise Program,Joint Mobilizations,Manual Therapy, Patient/Caregiver Education, Self-Care/Home Management,Soft Tissue Mobilization, Therapeutic Exercises Modalities Electric Stimulation Next Visit Focus/Plan Next Note Type Treatment Note Next Visit Plan Review previously issued HEP for proper performance and compliance. Progress PF strengthening utilizing functional activities. Address appropriate clothing wear, and use of breath work for activities. Check for improvement in hip ER mobility . Progress LE roll in/out activities. Plan of Care Dates Plan of Care Start Date 07/08/19 Plan of Care End Date 12/06/19 Electronically Signed by: Jennifer Plata, PT 10/13/19 2932 Please Sign and Return: I have reviewed this Plan of Care and certify that the skilled therapy services above are required to meet the patient?s needs. Physician Signature Date Printed Name and Credentials Clinical Instructor Signature Printed Name and Credentials
--- NOTE | 2019-10-18 14:11 | PT-OP ANOTE ---
Pt DNS, msg left informing pt of missed appt and requested pt call back to find the day and time of her next scheduled appt.
--- NOTE | 2019-10-20 14:24 | PT.OTN ---
Current Diagnoses Stiffness of right hip, not elsewhere classified (10/20/19) Muscle weakness (generalized) (10/20/19) Mixed incontinence (10/20/19) Unspecified urinary incontinence (10/20/19) Physical Therapy Treatment Note PT-OP-A Visit Information Start: 07/05/19 17:49 Freq: Status: Active Protocol: Document 10/20/19 10:42 LRN (Rec: 10/20/19 11:24 LRN [id number]) Out-Patient Physical Therapy Visit Information Visit Information Visit Type Treatment Note Visit Start Time 10:42 Visit Stop Time 11:20 Total Visit Minutes 38 Visit Number 8 Evaluation Information Evaluation Date 07/08/19 Precautions Precautions Lichen Planus on body and arms /legs from Autoimmune disease, uses cream to control rash but skin itches. PT-OP-B Current Condition Start: 07/05/19 17:49 Freq: Status: Active Protocol: Document 10/13/19 09:02 LRN (Rec: 10/13/19 10:32 LRN [id number]) Current Condition History of Current Condition Onset Date 2 months ago. Current Complaints Bulge in vagina History of Current Condition Lifted furniture for 2 months ago and felt a bulge in vagina . Recently began having UTI's . Currently no UTI, last time was in May. Last year UTI's 2-3 times. Now urinates with intermittent peeing, occasionally wets pants trying to get to bathroom; therefore getting anxiety about that. Cold all the time, taking thyroid medications for hypothyroidism . 10/13/19: Pt returns following clinic closure due to Covid 19 pandemic. Current condition: Pt feeling more bulging of bladder. Reduction of urge incontinence with initial return home (boo indoor trigger) and elimination of urge incontinence with trigger of running water. No UTI's during community isolation precautions. Urination: able to empty bladder with 2-3 times repositioning to empty. Developmental History Developmental History History: 2 pregnancies and both precepts (quick birthing). Had massage to perineum before birthing; therefore doesn't recall tearing. Has had several urinary tract infections. Lifted furniture 2 months ago and felt vaginal bulge. Treatment Goals Patient/Caregiver Goals Pt goal is to urinate better. Pt goal is to eliminate the bladder bulge. 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 History of hip rotation ROM limitations. PT-OP-C Subjective Start: 07/05/19 17:49 Freq: Status: Active Protocol: Document 10/20/19 10:42 LRN (Rec: 10/20/19 11:24 LRN [id number]) OP-PT Subjective Patient Comments Patient Comments States her R hip is flared up and sore. Thinks it is arthritis. PT-OP-I Pelvic Floor Start: 07/05/19 17:49 Freq: Status: Active Protocol: Document 10/13/19 09:02 LRN (Rec: 10/13/19 10:32 LRN [id number]) Pelvic Floor Assessment SEMG (uV) Baseline 1.1 Quick Contraction 9.0 10 Second Contraction 9.4 Recruitment Pattern Good Holding Fair Stability of Hold Fair SEMG Stability of Rest Good Contraction Ability Voluntary Contraction Moderate Comments Pelvic Floor Comments Hands behind head during baseline. Pt had to be instructed to keep arms by sides during Quick and Long holds of 10 reps. Long holds Avg rest 1.4uV's Pt needed cuing to not breath hold for Long Holds/Quick contractions. PT-OP-J Posture/Palpation/Skin Start: 07/05/19 17:49 Freq: Status: Active Protocol: Document 10/13/19 09:02 LRN (Rec: 10/13/19 10:32 LRN [id number]) Posture Evaluation Position Standing Evaluation View All positions Head/C-Spine Posture Forward Head T-Spine Posture Increased Kyphosis L-Spine Posture Increased Lordosis Shoulder Posture (L) Rounded,(R) Rounded Pelvis Posture Anteriorly Tilted,(R) Rotated Anterior,(R) ASIS Posterior,(R ) ASIS Inferior Ankle/Foot Posture (R) Forefoot Abducted Palpation Assessment Location R hip Palpation Location R lateral hip Palpation Findings Tenderness Palpation Details Piriformis, Lateral hip ms PT-OP-K Range of Motion Start: 07/05/19 17:49 Freq: Status: Active Protocol: Document 10/13/19 09:02 LRN (Rec: 10/13/19 10:32 LRN [id number]) Hip Goniometric Range of Motion Hip Right Passive Abduction 35 Internal Rotation 30 External Rotation 35 Left Passive Abduction 35 Internal Rotation 30 External Rotation 65 PT-OP-M Strength Start: 07/05/19 17:49 Freq: Status: Active Protocol: Document 07/08/19 15:13 LRN (Rec: 07/08/19 17:26 LRN [id number]) Hip Strength Hip Manual Muscle Testing Right Extension (S1) 3 Fair Comments Hip strength 5/5 except those listed above. Left Extension (S1) 3 Fair External Rotation 4 Good Comments Hip strength 5/5 except those listed above. PT-OP-Q Treatments Start: 07/05/19 17:49 Freq: Status: Active Protocol: Document 10/20/19 10:42 LRN (Rec: 10/20/19 11:24 LRN [id number]) Therapeutic Exercises Supine Exercises PF contraction on wedge Supine Exercise Name Ball squeeze Resistance Ball Reps/Minutes 5x Comments Working on pt awareness of PF lift. Used visualization for ex PF BKFO Supine Exercise Name PF contraction w/BKFO Resistance Lev 2 T-Band around knees Reps/Minutes 3' Comments Working on pt awareness and PF contraction anterior & posterior PF Hip IR stretch L>R Supine Exercise Name Lateral hip stretch Side right Reps/Minutes 3' Comments Reviewed limit of stretch Prone Exercises KRISTEL Prone Exercise Name KRISTEL Reps/Minutes 10S x 10 Comments Positional training Sitting Exercises Hip ER Sitting Exercise Name Leg on table Side right Comments Attempted several positions before finding best Manual Therapy Treatment Soft Tissue Mobilization Anterior Trunk Body Location Upper Anterior trunk Mobilization Type Myofascial Release Intensity/Depth Superficial Body Position Supine Comments Pt stiff in upper thoracic region. Self-Care/Home Management Treatment Education Patient Education Home Exercise Program Other Education Educated pt in maximal tightness of clothing wear by assessing in supine, sit, and standing. Pt needed awareness training of minimal tightness to reduce pressure on abdominal organs. Activities Self-Care/Home Management Activities Issued & reviewed HEP: KRISTEL stretching in prone and sitting. PT-OP-T Assessment and Plan Start: 07/05/19 17:49 Freq: Status: Active Protocol: Document 10/20/19 10:42 LRN (Rec: 10/20/19 11:24 LRN [id number]) Physical Therapy Assessment Goals Three Impairment Slow stream when urinating Halfway Goal (LTG) Pt will be able to urinate with a normal stream without having to adjust her pelvis. 10/13/19: Pt able to feel completed void after 3 stop/ start times on toilet during voiding. LTG Duration 12/06/19 Two Impairment Bulge in vaginal canal. Short Term Goal (STG) Increase PF strength to 3/5. STG Duration 11/10/19 (10/20/19: Progressing ex) Halfway Goal (LTG) Pt will no longer feel a bulge in the vaginal canal with daily activities. 10/13/19: Pt feels bulging is worse but is able to pull bladder up when performing a PF contraction. LTG Duration 12/06/19 One Impairment Lacks appropriate HEP Halfway Goal (LTG) Pt will be independent in a ongoing self care HEP. LTG Duration 12/06/19 (10/20/19: Progressing) Progress Towards Goals Progress Comments Pt able to feel anterior PF contraction, but not able to understand or have awareness of contraction the anterior PF with pelvis in different positions (posterior tilt). Pt has better understanding of restriction of clothing wear after educating and identifying minimal restriction desired. Assessment Summary Assessment Pt has poor awareness of PF contraction in coordinated fashion to get PF lift. She has better understanding of restricted clothing effects on bladder; therefore may be more compliant with looser clothing wear. Pt needs further posture training. Physical Therapy Plan Frequency and Duration Frequency of Treatment 1x/Week Plan of Care Start Date 07/08/19 Plan of Care End Date 12/06/19 Next Visit Focus/Plan Next Note Type Treatment Note Next Visit Plan Review: KRISTEL in prone, sit; & use of pillows for PF ex's. EMG assessment of PF strength Possible EStim to improve pt awareness. Teach proper breathing with transfers and gardening positioning. PF ex training with functional activities. LE Roll in/out ex.
--- NOTE | 2019-10-27 16:11 | PT.OTN ---
Current Diagnoses Stiffness of right hip, not elsewhere classified (10/27/19) Muscle weakness (generalized) (10/27/19) Mixed incontinence (10/27/19) Unspecified urinary incontinence (10/27/19) Physical Therapy Treatment Note PT-OP-A Visit Information Start: 07/05/19 17:49 Freq: Status: Active Protocol: Document 10/27/19 10:35 LRN (Rec: 10/27/19 11:27 LRN [id number]) Out-Patient Physical Therapy Visit Information Visit Information Visit Type Treatment Note Visit Note 07/11 since last PN Visit Start Time 10:35 Visit Stop Time 11:27 Total Visit Minutes 52 Visit Number 9 Evaluation Information Evaluation Date 07/08/19 Precautions Precautions Lichen Planus on body and arms /legs from Autoimmune disease, uses cream to control rash but skin itches. PT-OP-B Current Condition Start: 07/05/19 17:49 Freq: Status: Active Protocol: Document 10/13/19 09:02 LRN (Rec: 10/13/19 10:32 LRN [id number]) Current Condition History of Current Condition Onset Date 2 months ago. Current Complaints Bulge in vagina History of Current Condition Lifted furniture for 2 months ago and felt a bulge in vagina . Recently began having UTI's . Currently no UTI, last time was in May. Last year UTI's 2-3 times. Now urinates with intermittent peeing, occasionally wets pants trying to get to bathroom; therefore getting anxiety about that. Cold all the time, taking thyroid medications for hypothyroidism . 10/13/19: Pt returns following clinic closure due to Covid 19 pandemic. Current condition: Pt feeling more bulging of bladder. Reduction of urge incontinence with initial return home (boo indoor trigger) and elimination of urge incontinence with trigger of running water. No UTI's during community isolation precautions. Urination: able to empty bladder with 2-3 times repositioning to empty. Developmental History Developmental History History: 2 pregnancies and both precepts (quick birthing). Had massage to perineum before birthing; therefore doesn't recall tearing. Has had several urinary tract infections. Lifted furniture 2 months ago and felt vaginal bulge. Treatment Goals Patient/Caregiver Goals Pt goal is to urinate better. Pt goal is to eliminate the bladder bulge. 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 History of hip rotation ROM limitations. PT-OP-C Subjective Start: 07/05/19 17:49 Freq: Status: Active Protocol: Document 10/27/19 10:35 LRN (Rec: 10/27/19 11:27 LRN [id number]) OP-PT Subjective Patient Comments Patient Comments R hip as gotten better since last visit, but still sore. Pt concerned of R hip and discussed onset of pain with lifting of leg. No pain with resting or walking. Pt states she is urinating 5- 6x/day and no longer has urgency. She is trying to drink more water. PT-OP-I Pelvic Floor Start: 07/05/19 17:49 Freq: Status: Active Protocol: Document 10/13/19 09:02 LRN (Rec: 10/13/19 10:32 LRN [id number]) Pelvic Floor Assessment SEMG (uV) Baseline 1.1 Quick Contraction 9.0 10 Second Contraction 9.4 Recruitment Pattern Good Holding Fair Stability of Hold Fair SEMG Stability of Rest Good Contraction Ability Voluntary Contraction Moderate Comments Pelvic Floor Comments Hands behind head during baseline. Pt had to be instructed to keep arms by sides during Quick and Long holds of 10 reps. Long holds Avg rest 1.4uV's Pt needed cuing to not breath hold for Long Holds/Quick contractions. PT-OP-J Posture/Palpation/Skin Start: 07/05/19 17:49 Freq: Status: Active Protocol: Document 10/13/19 09:02 LRN (Rec: 10/13/19 10:32 LRN [id number]) Posture Evaluation Position Standing Evaluation View All positions Head/C-Spine Posture Forward Head T-Spine Posture Increased Kyphosis L-Spine Posture Increased Lordosis Shoulder Posture (L) Rounded,(R) Rounded Pelvis Posture Anteriorly Tilted,(R) Rotated Anterior,(R) ASIS Posterior,(R ) ASIS Inferior Ankle/Foot Posture (R) Forefoot Abducted Palpation Assessment Location R hip Palpation Location R lateral hip Palpation Findings Tenderness Palpation Details Piriformis, Lateral hip ms PT-OP-K Range of Motion Start: 07/05/19 17:49 Freq: Status: Active Protocol: Document 10/13/19 09:02 LRN (Rec: 10/13/19 10:32 LRN [id number]) Hip Goniometric Range of Motion Hip Right Passive Abduction 35 Internal Rotation 30 External Rotation 35 Left Passive Abduction 35 Internal Rotation 30 External Rotation 65 PT-OP-M Strength Start: 07/05/19 17:49 Freq: Status: Active Protocol: Document 07/08/19 15:13 LRN (Rec: 07/08/19 17:26 LRN [id number]) Hip Strength Hip Manual Muscle Testing Right Extension (S1) 3 Fair Comments Hip strength 5/5 except those listed above. Left Extension (S1) 3 Fair External Rotation 4 Good Comments Hip strength 5/5 except those listed above. PT-OP-Q Treatments Start: 07/05/19 17:49 Freq: Status: Active Protocol: Document 10/27/19 10:35 LRN (Rec: 10/27/19 11:27 LRN [id number]) Therapeutic Exercises Supine Exercises PF contraction on wedge Supine Exercise Name PF contractions with EMG Biofeedback Reps/Minutes 15' Comments Quick Flicks & Long Holds. Awareness of Resting Standing Exercises Forward bending w/PF contraction Standing Exercise Name HS stretch position with PF contraction Reps/Minutes 5' Comments Adjusted level of bend & cued breathing pt to do between gardening bouts. PF contraction Standing Exercise Name Awareness training Reps/Minutes 3' Comments Varying position of pelvis and knees & pressure on PF to get contraction Other Exercises Kneeling Other Exercise Name Hip AD w/PF contraction during gardening kneeling positioning Equipment Used towel roll Reps/Minutes 5' Neuro Re-Education Treatment Coordination Activities PF contraction Details Pulling in/up of PF & coordination of breathing and PF contraction Equipment EMG Biofeedback Reps/Duration 8' Comments Visual biofeedback for slow progressive contraction and pulling up of PF. Other Activities PF strengthening Details PF strengthening with visual biofeedback Comments Pt used visual biofeedback with quick contractions. Long holds cuing needed for not breath holding. Encouragement needed for strengthening ex's. Self-Care/Home Management Treatment Education Patient Education Body Mechanics,Home Exercise Program Other Education Discussed at length R hip pain and irritating factors ( primarily lifting leg). Discussed and educated pt in ways to decrease inflammation of the hip and held hip stretching ex's due to pain with stretching. Issued & discussed anti- inflammatory food list and use of Salvador Milk to help with inflammation and pain at hip. Pt taking Alleve and discussed to give advice on anti-inflammatory medications . Recommended use of ice & heat to see what would be better for pain management since she describes her pain as internal. Activities Self-Care/Home Management Activities I/S pt in self care ex with discussion of proper psoturing during gardening activities and need for intermittent rest breaks. PT-OP-T Assessment and Plan Start: 07/05/19 17:49 Freq: Status: Active Protocol: Document 10/27/19 10:35 LRN (Rec: 10/27/19 11:27 LRN [id number]) Physical Therapy Assessment Goals Three Impairment Slow stream when urinating Christmas Bell Ringer Goal (LTG) Pt will be able to urinate with a normal stream without having to adjust her pelvis. 10/13/19: Pt able to feel completed void after 3 stop/ start times on toilet during voiding. LTG Duration 12/06/19 Two Impairment Bulge in vaginal canal. Short Term Goal (STG) Increase PF strength to 3/5. STG Duration 11/10/19 (10/20/19: Progressing ex) Christmas Bell Ringer Goal (LTG) Pt will no longer feel a bulge in the vaginal canal with daily activities. 10/13/19: Pt feels bulging is worse but is able to pull bladder up when performing a PF contraction. LTG Duration 12/06/19 One Impairment Lacks appropriate HEP Christmas Bell Ringer Goal (LTG) Pt will be independent in a ongoing self care HEP. LTG Duration 12/06/19 (10/20/19: Progressing) Assessment Summary Assessment Pt has poor awareness of lifting of her PF. She is able to identify a lift when performed immediately after gentle bulging. She is now being compliant with looser clothing wear; therefore improvement in bladder positioning will hopefully occur. Pt appears receptive to doing ex's in conjunction with her gardening activities. Pt may need to modify her stair climbing going sideways. Physical Therapy Plan Frequency and Duration Frequency of Treatment 1x/Week Plan of Care Start Date 07/08/19 Plan of Care End Date 12/06/19 Next Visit Focus/Plan Next Note Type Treatment Note Next Visit Plan Assess for improvement in urinary stream flow, and ascending steps sideways. Review: KRISTEL in prone; & use of pillows for PF ex's. Review: PF ex training with functional activities. ESTIM: to improve pt awareness . Teach proper breathing with transfers and gardening positioning. Add: LE Roll in/out ex.
--- NOTE | 2019-11-21 17:44 | PT.OPDS ---
Current Diagnoses Stiffness of right hip, not elsewhere classified (10/27/19) Muscle weakness (generalized) (10/27/19) Mixed incontinence (10/27/19) Unspecified urinary incontinence (10/27/19) Visit Care Team Role Provider Type [place] Givens MD Primary Care Provider Physician Specialty: Internal Medicine Address: [address] [place] [address], [id number] Email: [email or web address] Yulisa Lai MD Attending Provider Physician Referring Provider Specialty: VETERINARY ASSISTANT TECHNICIAN Address: [address] [place] [address], [address] Email: Visit Number Visit Number 9 Discharge Summary PT-OP-B Current Condition Start: 07/05/19 17:49 Freq: Status: Active Protocol: Document 10/13/19 09:02 LRN (Rec: 10/13/19 10:32 LRN [id number]) Current Condition History of Current Condition Onset Date 2 months ago. Current Complaints Bulge in vagina History of Current Condition Lifted furniture for 2 months ago and felt a bulge in vagina . Recently began having UTI's . Currently no UTI, last time was in May. Last year UTI's 2-3 times. Now urinates with intermittent peeing, occasionally wets pants trying to get to bathroom; therefore getting anxiety about that. Cold all the time, taking thyroid medications for hypothyroidism . 10/13/19: Pt returns following clinic closure due to Covid 19 pandemic. Current condition: Pt feeling more bulging of bladder. Reduction of urge incontinence with initial return home (boo indoor trigger) and elimination of urge incontinence with trigger of running water. No UTI's during community isolation precautions. Urination: able to empty bladder with 2-3 times repositioning to empty. Developmental History Developmental History History: 2 pregnancies and both precepts (quick birthing). Had massage to perineum before birthing; therefore doesn't recall tearing. Has had several urinary tract infections. Lifted furniture 2 months ago and felt vaginal bulge. Treatment Goals Patient/Caregiver Goals Pt goal is to urinate better. Pt goal is to eliminate the bladder bulge. 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 History of hip rotation ROM limitations. PT-OP-C Subjective Start: 07/05/19 17:49 Freq: Status: Active Protocol: Document 10/27/19 10:35 LRN (Rec: 10/27/19 11:27 LRN [id number]) OP-PT Subjective Patient Comments Patient Comments R hip as gotten better since last visit, but still sore. Pt concerned of R hip and discussed onset of pain with lifting of leg. No pain with resting or walking. Pt states she is urinating 5- 6x/day and no longer has urgency. She is trying to drink more water. PT-OP-I Pelvic Floor Start: 07/05/19 17:49 Freq: Status: Active Protocol: Document 10/13/19 09:02 LRN (Rec: 10/13/19 10:32 LRN [id number]) Pelvic Floor Assessment SEMG (uV) Baseline 1.1 Quick Contraction 9.0 10 Second Contraction 9.4 Recruitment Pattern Good Holding Fair Stability of Hold Fair SEMG Stability of Rest Good Contraction Ability Voluntary Contraction Moderate Comments Pelvic Floor Comments Hands behind head during baseline. Pt had to be instructed to keep arms by sides during Quick and Long holds of 10 reps. Long holds Avg rest 1.4uV's Pt needed cuing to not breath hold for Long Holds/Quick contractions. PT-OP-J Posture/Palpation/Skin Start: 07/05/19 17:49 Freq: Status: Active Protocol: Document 10/13/19 09:02 LRN (Rec: 10/13/19 10:32 LRN [id number]) Posture Evaluation Position Standing Evaluation View All positions Head/C-Spine Posture Forward Head T-Spine Posture Increased Kyphosis L-Spine Posture Increased Lordosis Shoulder Posture (L) Rounded,(R) Rounded Pelvis Posture Anteriorly Tilted,(R) Rotated Anterior,(R) ASIS Posterior,(R ) ASIS Inferior Ankle/Foot Posture (R) Forefoot Abducted Palpation Assessment Location R hip Palpation Location R lateral hip Palpation Findings Tenderness Palpation Details Piriformis, Lateral hip ms PT-OP-K Range of Motion Start: 07/05/19 17:49 Freq: Status: Active Protocol: Document 10/13/19 09:02 LRN (Rec: 10/13/19 10:32 LRN [id number]) Hip Goniometric Range of Motion Hip Right Passive Abduction 35 Internal Rotation 30 External Rotation 35 Left Passive Abduction 35 Internal Rotation 30 External Rotation 65 PT-OP-M Strength Start: 07/05/19 17:49 Freq: Status: Active Protocol: Document 07/08/19 15:13 LRN (Rec: 07/08/19 17:26 LRN [id number]) Hip Strength Hip Manual Muscle Testing Right Extension (S1) 3 Fair Comments Hip strength 5/5 except those listed above. Left Extension (S1) 3 Fair External Rotation 4 Good Comments Hip strength 5/5 except those listed above. PT-OP-T Assessment and Plan Start: 07/05/19 17:49 Freq: Status: Active Protocol: Document 11/21/19 17:36 LRN (Rec: 11/21/19 17:44 LRN [id number]) Physical Therapy Assessment Goals Three Impairment Slow stream when urinating Nursing Home Goal (LTG) Pt will be able to urinate with a normal stream without having to adjust her pelvis. 10/13/19: Pt able to feel completed void after 3 stop/ start times on toilet during voiding. LTG Duration 12/06/19 (: Pt unavailable for final assessment) Two Impairment Bulge in vaginal canal. Short Term Goal (STG) Increase PF strength to 3/5. STG Duration 11/10/19 (: Pt unavailable for final assessment) Nursing Home Goal (LTG) Pt will no longer feel a bulge in the vaginal canal with daily activities. 10/13/19: Pt feels bulging is worse but is able to pull bladder up when performing a PF contraction. LTG Duration 12/06/19 (: Pt unavailable for final assessment) One Impairment Lacks appropriate HEP Paper Counter Goal (LTG) Pt will be independent in a ongoing self care HEP. LTG Duration 12/06/19 (: Pt unavailable for final assessment) Assessment Summary Assessment Pt was seen for 5 therapy visits prior to COVID 19 pandemic, then was seen for 3 more visits on reopening of clinic after a 2 month break in therapy. The pt continued to have a feeling of falling out but was urinating in a norm range of 5-6x/day on her return. The pt's restrictive clothing and limited adherence to her exercise program resulted in slow progression of her program. The pt was unavailable for final assessment due to pt DC per phone message. Physical Therapy Plan Discharge Physical Therapy Discharge Reasons Patient Request Discharge Comments Pt reports per Dr. Lai, PT no longer needed.
== END 2019-11-23 10:07 ==
LOC: PHYS 10:30
PROVIDERS: PCP Internal Medicine; Referring Provider Obstetrics & Gynecology; Visit Provider Obstetrics & Gynecology
DX: N39.46 Mixed incontinence (principal); M25.651 Stiffness of right hip, not elsewhere classified; M62.81 Muscle weakness (generalized)
CPT/HCPCS: 97110; 97112; 97162; 97535

== ENCOUNTER → 2019-12-05 13:10 | Outpatient (CLI) | payer MEDICARE, OTHER, SELFPAY ==
--- NOTE | 2019-12-05 13:11 | DI.RAD.S_ITS ---
PROCEDURE: XR LUMBAR SPINE MIN 4V INDICATIONS: right hip pain TECHNIQUE: 5 views of the lumbar spine were acquired. COMPARISON: [facility], , L-SPINE 2-3 VIEWS, 12/20/2008, 14:43. FINDINGS: Bones: There are 5 lumbar-type vertebral bodies. The lowest intervertebral disk space is designated as L5-S1. The vertebral body heights are well-maintained without evidence to suggest an acute compression fracture. The bone mineralization is within normal limits. Moderate multilevel degenerative changes of the lumbar spine are primarily evident involving the lower lumbar facet joints. Scattered areas of mild disc height loss are present. There is grade 1 anterolisthesis of L4 on L5, which is new. No definite pars interarticularis defects are identified at this level. However, sclerosis of the pars interarticularis regions are present. The degree of degenerative changes have slightly progressed in the interim. Soft tissues: The soft tissues of the imaged abdomen and pelvis are within normal limits. IMPRESSION: 1. Moderate degenerative changes of the lumbar spine have slightly progressed in the interim. 2. Grade 1 spondylolisthesis at L4/5 without definite pars interarticularis defects. Dictated by: Tra Kwan M.D. on 12/05/2019 at 13:06 Approved by: Tra Kwan M.D. on 12/05/2019 at 13:08
--- NOTE | 2019-12-05 13:11 | DI.RAD.S_ITS ---
PROCEDURE: XR HIP W PEL IF DONE RT 2V INDICATIONS: right hip pain TECHNIQUE: 2 views of the hip were acquired. [facility] [place] [place] [place], XR PELVIS W LATERAL HIP RT, 11/23/2015, 15:26. FINDINGS: Bones: No displaced fractures or dislocations. No suspicious bony lesions. The visualized pelvic ring appears intact. Mild to moderate degenerative changes of the pelvic drains are present. Soft tissues: No suspicious soft tissue calcifications or masses. A rounded radiopaque density overlying the lower pelvis probably represents a pessary. IMPRESSION: No acute fracture of the right hip. Dictated by: Tra Kwan M.D. on 12/05/2019 at 13:04 Approved by: Tra Kwan M.D. on 12/05/2019 at 13:05
== END ==
PROVIDERS: PCP Internal Medicine; Referring Provider Physical Medicine & Rehabilitation; Visit Provider Physical Medicine & Rehabilitation
DX: M25.551 Pain in right hip (principal); M47.816 Spondylosis without myelopathy or radiculopathy, lumbar region; M43.16 Spondylolisthesis, lumbar region
CPT/HCPCS: 72110; 73502

== ENCOUNTER 2020-02-01 11:15 | Outpatient (RCR) | payer MEDICARE, OTHER, SELFPAY ==
--- NOTE | 2019-12-28 18:33 | PT.OIE ---
Current Diagnoses Spondylolisthesis, lumbar region (12/28/19) Trochanteric bursitis, right hip (12/28/19) Abnormal posture (12/28/19) Weakness (12/28/19) Past Medical History (Last Updated 12/12/19 @ 16:24 by Deny Diaz DO) Colon polyps (Acute) Diverticular disease (Chronic) Frequent UTI (Chronic) Greater trochanteric bursitis of right hip (Acute) Gynecologic disorder (Chronic) H/O vaginal delivery (Acute) Lichen planus (Chronic) Lumbar spondylosis (Acute) Lumbosacral radiculopathy at L4 (Acute) Positive PPD (Resolved) Right hip pain (Acute) Spondylolisthesis at L4-L5 level (Acute) Urinary urgency (Chronic) Vision disorder (Chronic) Past Surgical History (Last Reviewed 12/12/19 @ 16:24 by Deny Diaz DO) Anesthesia (Resolved) History of colonoscopy (Resolved) Status post surgery (03/10/13) Superficial varicosities (Resolved) Visit Care Team Role Provider Type [place] Givens MD Primary Care Provider Physician Specialty: Internal Medicine Address: [address] [place] [address] Email: [email or web address] Deny Diaz DO Attending Provider Physician Referring Provider Specialty: Physiatry Pain Management Address: [address] [place] [address], [facility] Email: [email or web address] Physical Therapy Initial Evaluation PT-OP-A Visit Information Start: 12/27/19 18:04 Freq: Status: Active Protocol: Document 12/28/19 16:09 [facility] (Rec: 12/28/19 16:50 [facility] [id number]) Out-Patient Physical Therapy Visit Information Visit Information Visit Type Initial Evaluation Visit Start Time 16:06 Visit Stop Time 16:47 Total Visit Minutes 41 Visit Number 1 Number of PLACEMENT MANAGER Visits 0 PT-OP-B Current Condition Start: 12/27/19 18:04 Freq: Status: Active Protocol: Document 12/28/19 16:09 [facility] (Rec: 12/28/19 16:50 [facility] [id number]) Current Condition History of Current Condition Onset Date Jul Current Complaints R hip pain History of Current Condition Pt was working on hip R ROM and pushed it in PT around begining of Jul and started having apin in lat hip and ant hip. Pt reports she fell on her tailbone as a kid and broke that. No sitting issues now except she gets stiff. She started celebrex and couldn't get her sock on but now can since being on Celebrex. Pt reports she was seeing pelvic floor therapist and now has a pesary and no issues. Pt reports celebrex has helped ability to lay on hip. Pt has been gardening but gets down to a knee pad. Pt reports L ankle has gotten a little bigger recently. Pt reports some neuropathy in hands when first waking up. Gets stiff in legs whens tanding extended Prior Treatments and Tests krystal, gave some gentle stretching exercises Treatment Goals Patient/Caregiver Goals Be able to get socks on, stay flexible PT-OP-C Subjective Start: 12/27/19 18:04 Freq: Status: Active Protocol: Document 12/28/19 16:09 [facility] (Rec: 12/28/19 16:50 [facility] [id number]) Patient Questionnaires Lower Extremity Functional Scale LEFS Score 62 OP-PT Pain Assessment Location R hip Pain Location Details lat hip Intensity 7 Scale Used Numeric (0 - 10) Frequency Occasional Pain Duration as soon as get out of that position-some minor irritation after Other Pain Aggravating Factors putting sock on, cross legs PT-OP-F Manual Assessment Start: 12/27/19 18:04 Freq: Status: Active Protocol: Document 12/28/19 16:09 [facility] (Rec: 12/28/19 16:50 [facility] [id number]) Manual Assessments Soft Tissue Assessment Soft Tissue Mobility Assessment tightness to ITB R & glutes & piriformis Joint Mobility Assessment Joint Mobility Assessment R iliac crest higher PT-OP-G Mobility & Gait Start: 12/27/19 18:04 Freq: Status: Active Protocol: Document 12/28/19 16:09 [facility] (Rec: 12/28/19 16:50 [facility] [id number]) OP Gait Assessment Comments Gait Comments slight dec push off PT-OP-J Posture/Palpation/Skin Start: 12/27/19 18:04 Freq: Status: Active Protocol: Document 12/28/19 16:09 [facility] (Rec: 12/28/19 16:50 [facility] [id number]) Posture Evaluation Comments Posture Comments inc kyphosis (pt reports this since a child) PT-OP-K Range of Motion Start: 12/27/19 18:04 Freq: Status: Active Protocol: Document 12/28/19 16:09 [facility] (Rec: 12/28/19 16:50 [facility] [id number]) Hip Goniometric Range of Motion Hip Left Active Flexion w/Knee Flexed 91 Abduction 29 Internal Rotation 20 External Rotation 25 Right Active Flexion w/Knee Flexed 81 Abduction 22 Internal Rotation 26 External Rotation 18 PT-OP-L Special Tests Start: 12/27/19 18:04 Freq: Status: Active Protocol: Document 12/28/19 16:09 [facility] (Rec: 12/28/19 16:50 [facility] [id number]) Special Tests Lumbar Spine Special Tests Je Test Results min tightness B RF & iliacus Straight Leg Raise Test Results mild tigthness Slump Test Results neg PT-OP-M Strength Start: 12/27/19 18:04 Freq: Status: Active Protocol: Document 12/28/19 16:09 [facility] (Rec: 12/28/19 16:50 [facility] [id number]) Hip Strength Hip Manual Muscle Testing Right Flexion (L2) 3+ Fair+ Extension (S1) 3+ Fair+ Abduction 3+ Fair+ External Rotation 3+ Fair+ Internal Rotation 3+ Fair+ Left Flexion (L2) 3+ Fair+ Extension (S1) 4- Good- Abduction 4- Good- Internal Rotation 4- Good- Knee Strength Knee Manual Muscle Testing Right Flexion (S2) 4+ Good+ Extension (L3) 4+ Good+ Left Flexion (S2) 4+ Good+ Extension (L3) 5 Normal PT-OP-Q Treatments Start: 12/27/19 18:04 Freq: Status: Active Protocol: Document 12/28/19 16:09 [facility] (Rec: 12/28/19 16:50 [facility] [id number]) Therapeutic Exercises Supine Exercises Hamstring stretch Supine Exercise Name HS stretch & lat hip stretch Side bilateral Reps/Minutes 30 sec Hip ER, R>L Supine Exercise Name figure 4 stretch Side bilateral Reps/Minutes 30 sec PT-OP-T Assessment and Plan Start: 07/28/20 18:04 Freq: Status: Active Protocol: Document 12/28/19 16:09 [facility] (Rec: 12/28/19 16:50 [facility] [id number]) Physical Therapy Assessment Rehab Potential Rehabilitation Potential Good Evaluation Complexity Number of Personal Factors/Comorbidities 3 or More Number of Body Systems Impaired 4 or More Clinical Presentation at Evaluation Stable Impairments Impairments Functional Mobility,Gait,Pain, Posture,ROM,Soft Tissue Mobility,Strength Goals Three Pharmacist Helper Goal (LTG) Pt will report no greater than 2/10 pain in her hip on a typical day. LTG Duration 02/28/20 Two Short Term Goal (STG) Pt will inc ROM of flex and ER to equal of the other side. STG Duration 01/28/20 Pharmacist Helper Goal (LTG) Pt will be able to put on socks and shoes indep without inc pain. LTG Duration 02/28/20 One Short Term Goal (STG) Pt will be indep with HEP. STG Duration 01/28/20 Pharmacist Helper Goal (LTG) pt will show improved strength to make daily activities easier with dec stiffness by having at least 4/5 LE strength and 2/5 LPM. LTG Duration 02/28/20 Assessment Summary Assessment Pt presents with R hip pain with diagnosis of trochanteric bursitis that started to be painfula fter over stretching in past PT. She reports having dec flexibility for all her life but has been worse recently where it has been painful to get her socks and shoes on and very difficult. She would benefit from skilled PT to work on her flexibility , posture, core stability and LE strength to inc ease of ADLs especailly donning shoes and socks. Physical Therapy Plan Frequency and Duration Frequency of Treatment 1-2x/week Duration of Treatment 2 months Plan of Care Start Date 12/28/19 Plan of Care End Date 02/28/20 Therapeutic Interventions Therapeutic Interventions Aquatic Therapy,Balance Training,Gait Training,Home Exercise Program,Joint Mobilizations,Manual Therapy, Neuromuscular Re-education, Patient/Caregiver Education, Self-Care/Home Management,Soft Tissue Mobilization,Taping, Therapeutic Activities, Therapeutic Exercises Modalities Cold Pack/Ice Massage,Electric Stimulation,Hot Packs, Infrared Therapy,Traction- Mechanical,Ultrasound Next Visit Focus/Plan Next Note Type Treatment Note Next Visit Plan STM to piriformis gentle & to ITB R, edu on tennis ball at wall & rolling pin, core stability exercises, try hip on axis
--- NOTE | 2019-12-28 18:33 | PT.OPPOC ---
Physical, Occupational & Speech Therapy [facility] Current Diagnoses Spondylolisthesis, lumbar region (12/28/19) Trochanteric bursitis, right hip (12/28/19) Abnormal posture (12/28/19) Weakness (12/28/19) Visit Care Team Role Provider Type [place] Givens MD Primary Care Provider Physician Specialty: Internal Medicine Address: [address] [place] [address], [id number] Email: [email or web address] Deny Diaz DO Attending Provider Physician Referring Provider Specialty: Physiatry Pain Management Address: [facility] [place], [address] Email: [email or web address] Plan Of Care PT-OP-T Assessment and Plan Start: 12/27/19 18:04 Freq: Status: Active Protocol: Document 12/28/19 16:09 [facility] (Rec: 12/28/19 16:50 [facility] [id number]) Physical Therapy Assessment Rehab Potential Rehabilitation Potential Good Evaluation Complexity Number of Personal Factors/Comorbidities 3 or More Number of Body Systems Impaired 4 or More Clinical Presentation at Evaluation Stable Impairments Impairments Functional Mobility,Gait,Pain, Posture,ROM,Soft Tissue Mobility,Strength Goals Three Correction Goal (LTG) Pt will report no greater than 2/10 pain in her hip on a typical day. LTG Duration 02/28/20 Two Short Term Goal (STG) Pt will inc ROM of flex and ER to equal of the other side. STG Duration 01/28/20 Correction Goal (LTG) Pt will be able to put on socks and shoes indep without inc pain. LTG Duration 02/28/20 One Short Term Goal (STG) Pt will be indep with HEP. STG Duration 01/28/20 Basting Cleaner Goal (LTG) pt will show improved strength to make daily activities easier with dec stiffness by having at least 4/5 LE strength and 2/5 LPM. LTG Duration 02/28/20 Assessment Summary Assessment Pt presents with R hip pain with diagnosis of trochanteric bursitis that started to be painfula fter over stretching in past PT. She reports having dec flexibility for all her life but has been worse recently where it has been painful to get her socks and shoes on and very difficult. She would benefit from skilled PT to work on her flexibility , posture, core stability and LE strength to inc ease of ADLs especailly donning shoes and socks. Physical Therapy Plan Frequency and Duration Frequency of Treatment 1-2x/week Duration of Treatment 2 months Plan of Care Start Date 12/28/19 Plan of Care End Date 02/28/20 Therapeutic Interventions Therapeutic Interventions Aquatic Therapy,Balance Training,Gait Training,Home Exercise Program,Joint Mobilizations,Manual Therapy, Neuromuscular Re-education, Patient/Caregiver Education, Self-Care/Home Management,Soft Tissue Mobilization,Taping, Therapeutic Activities, Therapeutic Exercises Modalities Cold Pack/Ice Massage,Electric Stimulation,Hot Packs, Infrared Therapy,Traction- Mechanical,Ultrasound Next Visit Focus/Plan Next Note Type Treatment Note Next Visit Plan STM to piriformis gentle & to ITPierre R, edu on tennis ball at wall & rolling pin, core stability exercises, try hip on axis Plan of Care Dates Plan of Care Start Date 12/28/19 Plan of Care End Date 02/28/20 Electronically Signed by: Mila Duncan, PT 12/28/19 [id number] Please Sign and Return: I have reviewed this Plan of Care and certify that the skilled therapy services above are required to meet the patient?s needs. Physician Signature Date Printed Name and Credentials Clinical Instructor Signature Printed Name and Credentials
--- NOTE | 2020-01-04 16:14 | PT.OTN ---
Current Diagnoses Spondylolisthesis, lumbar region (01/04/20) Trochanteric bursitis, right hip (01/04/20) Abnormal posture (01/04/20) Weakness (01/04/20) Physical Therapy Treatment Note PT-OP-A Visit Information Start: 12/27/19 18:04 Freq: Status: Active Protocol: Document 01/04/20 15:17 [facility] (Rec: 01/04/20 16:14 [facility] [id number]) Out-Patient Physical Therapy Visit Information Visit Information Visit Type Treatment Note Visit Start Time 15:18 Visit Stop Time 15:58 Total Visit Minutes 40 Visit Number 2 Number of COSMETICS SUPERVISOR Visits 0 PT-OP-B Current Condition Start: 12/27/19 18:04 Freq: Status: Active Protocol: Document 12/28/19 16:09 [facility] (Rec: 12/28/19 16:50 [facility] [id number]) Current Condition History of Current Condition Onset Date Jul Current Complaints R hip pain History of Current Condition Pt was working on hip R ROM and pushed it in PT around begining of Jul and started having apin in lat hip and ant hip. Pt reports she fell on her tailbone as a kid and broke that. No sitting issues now except she gets stiff. She started celebrex and couldn't get her sock on but now can since being on Celebrex. Pt reports she was seeing pelvic floor therapist and now has a pesary and no issues. Pt reports celebrex has helped ability to lay on hip. Pt has been gardening but gets down to a knee pad. Pt reports L ankle has gotten a little bigger recently. Pt reports some neuropathy in hands when first waking up. Gets stiff in legs whens tanding extended Prior Treatments and Tests MD krystal gave some gentle stretching exercises Treatment Goals Patient/Caregiver Goals Be able to get socks on, stay flexible PT-OP-C Subjective Start: 12/27/19 18:04 Freq: Status: Active Protocol: Document 01/04/20 15:17 [facility] (Rec: 01/04/20 16:14 [facility] [id number]) OP-PT Subjective Patient Comments Patient Comments Pt reports doing exercises. PT-OP-F Manual Assessment Start: 12/27/19 18:04 Freq: Status: Active Protocol: Document 12/28/19 16:09 [facility] (Rec: 12/28/19 16:50 [facility] [id number]) Manual Assessments Soft Tissue Assessment Soft Tissue Mobility Assessment tightness to ITB R & glutes & piriformis Joint Mobility Assessment Joint Mobility Assessment R iliac crest higher PT-OP-G Mobility & Gait Start: 12/27/19 18:04 Freq: Status: Active Protocol: Document 12/28/19 16:09 [facility] (Rec: 12/28/19 16:50 [facility] [id number]) OP Gait Assessment Comments Gait Comments slight dec push off PT-OP-J Posture/Palpation/Skin Start: 12/27/19 18:04 Freq: Status: Active Protocol: Document 12/28/19 16:09 [facility] (Rec: 12/28/19 16:50 [facility] [id number]) Posture Evaluation Comments Posture Comments inc kyphosis (pt reports this since a child) PT-OP-K Range of Motion Start: 12/27/19 18:04 Freq: Status: Active Protocol: Document 12/28/19 16:09 [facility] (Rec: 12/28/19 16:50 [facility] [id number]) Hip Goniometric Range of Motion Hip Left Active Flexion w/Knee Flexed 91 Abduction 29 Internal Rotation 20 External Rotation 25 Right Active Flexion w/Knee Flexed 81 Abduction 22 Internal Rotation 26 External Rotation 18 PT-OP-L Special Tests Start: 12/27/19 18:04 Freq: Status: Active Protocol: Document 12/28/19 16:09 [facility] (Rec: 12/28/19 16:50 [facility] [id number]) Special Tests Lumbar Spine Special Tests Je Test Results min tightness B RF & iliacus Straight Leg Raise Test Results mild tigthness Slump Test Results neg PT-OP-M Strength Start: 12/27/19 18:04 Freq: Status: Active Protocol: Document 12/28/19 16:09 [facility] (Rec: 12/28/19 16:50 [facility] [id number]) Hip Strength Hip Manual Muscle Testing Right Flexion (L2) 3+ Fair+ Extension (S1) 3+ Fair+ Abduction 3+ Fair+ External Rotation 3+ Fair+ Internal Rotation 3+ Fair+ Left Flexion (L2) 3+ Fair+ Extension (S1) 4- Good- Abduction 4- Good- Internal Rotation 4- Good- Knee Strength Knee Manual Muscle Testing Right Flexion (S2) 4+ Good+ Extension (L3) 4+ Good+ Left Flexion (S2) 4+ Good+ Extension (L3) 5 Normal PT-OP-Q Treatments Start: 12/27/19 18:04 Freq: Status: Active Protocol: Document 01/04/20 15:17 [facility] (Rec: 01/04/20 16:14 [facility] [id number]) Therapeutic Exercises Supine Exercises TA Supine Exercise Name july w/core Side bilateral Reps/Minutes 15 Bridge Side bilateral Reps/Minutes 10 Comments focus on core Hamstring stretch Supine Exercise Name HS stretch & lat hip stretch Side bilateral Reps/Minutes 30 sec Hip ER, R>L Supine Exercise Name figure 4 stretch Side bilateral Reps/Minutes 30 sec Prone Exercises ER Side right Reps/Minutes 10 Manual Therapy Treatment Soft Tissue Mobilization piriformis Body Location R Mobilization Type Rolling,Sustained Pressure Intensity/Depth Moderate Body Position Prone Comments w/IR/ER Joint Mobilizations innominate Joint R Direction ER FM hip Joint R Direction inf & ER hip on axis FM Body Position Prone PT-OP-T Assessment and Plan Start: 12/27/19 18:04 Freq: Status: Active Protocol: Document 01/04/20 15:17 [facility] (Rec: 01/04/20 16:14 [facility] [id number]) Physical Therapy Assessment Goals Three Longterm Goal (LTG) Pt will report no greater than 2/10 pain in her hip on a typical day. LTG Duration 02/28/20 Two Short Term Goal (STG) Pt will inc ROM of flex and ER to equal of the other side. STG Duration 01/28/20 Automobile Body Repairer Helper Goal (LTG) Pt will be able to put on socks and shoes indep without inc pain. LTG Duration 02/28/20 One Short Term Goal (STG) Pt will be indep with HEP. STG Duration 01/28/20 Longterm Goal (LTG) pt will show improved strength to make daily activities easier with dec stiffness by having at least 4/5 LE strength and 2/5 LPM. LTG Duration 02/28/20 Assessment Summary Assessment pt required signfiicant cueing for core activiation for core exercises. Requireed cueing for cross body stretch. After manual treatment, pt had greater ease to put on sock/ shoe position. Edu on use of tennis ball for self releise on wall or hard chair. Physical Therapy Plan Frequency and Duration Frequency of Treatment 1-2x/week Duration of Treatment 2 months Plan of Care Start Date 12/28/19 Plan of Care End Date 02/28/20 Next Visit Focus/Plan Next Note Type Treatment Note Next Visit Plan cont to work on core & work on pifiromis & ITB R
--- NOTE | 2020-01-09 14:32 | PT.OTN ---
Current Diagnoses Spondylolisthesis, lumbar region (01/09/20) Trochanteric bursitis, right hip (01/09/20) Abnormal posture (01/09/20) Weakness (01/09/20) Physical Therapy Treatment Note PT-OP-A Visit Information Start: 12/27/19 18:04 Freq: Status: Active Protocol: Document 01/09/20 13:47 [facility] (Rec: 01/09/20 14:31 [facility] [id number]) Out-Patient Physical Therapy Visit Information Visit Information Visit Type Treatment Note Visit Start Time 13:47 Visit Stop Time 14:27 Total Visit Minutes 40 Visit Number 3 Number of TECHNICAL TRAINING INSTRUCTOR Visits 0 PT-OP-B Current Condition Start: 12/27/19 18:04 Freq: Status: Active Protocol: Document 12/28/19 16:09 [facility] (Rec: 12/28/19 16:50 [facility] [id number]) Current Condition History of Current Condition Onset Date Jul Current Complaints R hip pain History of Current Condition Pt was working on hip R ROM and pushed it in PT around begining of Jul and started having apin in lat hip and ant hip. Pt reports she fell on her tailbone as a kid and broke that. No sitting issues now except she gets stiff. She started celebrex and couldn't get her sock on but now can since being on Celebrex. Pt reports she was seeing pelvic floor therapist and now has a pesary and no issues. Pt reports celebrex has helped ability to lay on hip. Pt has been gardening but gets down to a knee pad. Pt reports L ankle has gotten a little bigger recently. Pt reports some neuropathy in hands when first waking up. Gets stiff in legs whens tanding extended Prior Treatments and Tests MD krystal gave some gentle stretching exercises Treatment Goals Patient/Caregiver Goals Be able to get socks on, stay flexible PT-OP-C Subjective Start: 12/27/19 18:04 Freq: Status: Active Protocol: Document 01/09/20 13:47 [facility] (Rec: 01/09/20 14:31 [facility] [id number]) OP-PT Subjective Patient Comments Patient Comments compliance with exercises, question on cross body stretch PT-OP-F Manual Assessment Start: 12/27/19 18:04 Freq: Status: Active Protocol: Document 12/28/19 16:09 [facility] (Rec: 12/28/19 16:50 [facility] [id number]) Manual Assessments Soft Tissue Assessment Soft Tissue Mobility Assessment tightness to ITB R & glutes & piriformis Joint Mobility Assessment Joint Mobility Assessment R iliac crest higher PT-OP-G Mobility & Gait Start: 12/27/19 18:04 Freq: Status: Active Protocol: Document 12/28/19 16:09 [facility] (Rec: 12/28/19 16:50 [facility] [id number]) OP Gait Assessment Comments Gait Comments slight dec push off PT-OP-J Posture/Palpation/Skin Start: 12/27/19 18:04 Freq: Status: Active Protocol: Document 12/28/19 16:09 [facility] (Rec: 12/28/19 16:50 [facility] [id number]) Posture Evaluation Comments Posture Comments inc kyphosis (pt reports this since a child) PT-OP-K Range of Motion Start: 12/27/19 18:04 Freq: Status: Active Protocol: Document 12/28/19 16:09 [facility] (Rec: 12/28/19 16:50 [facility] [id number]) Hip Goniometric Range of Motion Hip Left Active Flexion w/Knee Flexed 91 Abduction 29 Internal Rotation 20 External Rotation 25 Right Active Flexion w/Knee Flexed 81 Abduction 22 Internal Rotation 26 External Rotation 18 PT-OP-L Special Tests Start: 12/27/19 18:04 Freq: Status: Active Protocol: Document 12/28/19 16:09 [facility] (Rec: 12/28/19 16:50 [facility] [id number]) Special Tests Lumbar Spine Special Tests Je Test Results min tightness B RF & iliacus Straight Leg Raise Test Results mild tigthness Slump Test Results neg PT-OP-M Strength Start: 12/27/19 18:04 Freq: Status: Active Protocol: Document 12/28/19 16:09 [facility] (Rec: 12/28/19 16:50 [facility] [id number]) Hip Strength Hip Manual Muscle Testing Right Flexion (L2) 3+ Fair+ Extension (S1) 3+ Fair+ Abduction 3+ Fair+ External Rotation 3+ Fair+ Internal Rotation 3+ Fair+ Left Flexion (L2) 3+ Fair+ Extension (S1) 4- Good- Abduction 4- Good- Internal Rotation 4- Good- Knee Strength Knee Manual Muscle Testing Right Flexion (S2) 4+ Good+ Extension (L3) 4+ Good+ Left Flexion (S2) 4+ Good+ Extension (L3) 5 Normal PT-OP-Q Treatments Start: 12/27/19 18:04 Freq: Status: Active Protocol: Document 01/09/20 13:47 [facility] (Rec: 01/09/20 14:31 [facility] [id number]) Therapeutic Exercises Supine Exercises isometric Supine Exercise Name single leg Side bilateral Reps/Minutes 30 sec x2 stretch Supine Exercise Name piriformis stretch & cross body TFL stretch Side bilateral Reps/Minutes 30 sec ea TA Supine Exercise Name march w/core Side bilateral Reps/Minutes 15 Bridge Supine Exercise Name alt march Side bilateral Reps/Minutes 15x2 Comments focus on core Sidelying Exercises abd Side right Reps/Minutes 5 Comments stopped d/t pull in add IR Sidelying Exercise Name Hip Side right Reps/Minutes 15 ER Sidelying Exercise Name hip Side right Reps/Minutes 15 Standing Exercises sidestep Standing Exercise Name focus on core & no lat lean Side bilateral Equipment Used L1 Reps/Minutes 20ft Manual Therapy Treatment Soft Tissue Mobilization piriformis Body Location R>L Mobilization Type Rolling,Sustained Pressure Intensity/Depth Moderate Body Position Prone Comments w/IR/ER Joint Mobilizations sacrum Joint SUNNY PT-OP-T Assessment and Plan Start: 12/27/19 18:04 Freq: Status: Active Protocol: Document 01/09/20 13:47 [facility] (Rec: 01/09/20 14:31 [facility] [id number]) Physical Therapy Assessment Goals Three Fpc Goal (LTG) Pt will report no greater than 2/10 pain in her hip on a typical day. LTG Duration 02/28/20 Two Short Term Goal (STG) Pt will inc ROM of flex and ER to equal of the other side. STG Duration 01/28/20 Fpc Goal (LTG) Pt will be able to put on socks and shoes indep without inc pain. LTG Duration 02/28/20 One Short Term Goal (STG) Pt will be indep with HEP. STG Duration 01/28/20 Windows Security Analyst Goal (LTG) pt will show improved strength to make daily activities easier with dec stiffness by having at least 4/5 LE strength and 2/5 LPM. LTG Duration 02/28/20 Assessment Summary Assessment Pt was able to advance some core and hip exercises at therapy today without inc pain but cueing for foucs on neutral back positioning. After manual release in prone to R piriformis w/ER/IR, pt reported pain in same region on L. Tightness present and pt encouraged to stertch B and use tennis ball B. Physical Therapy Plan Frequency and Duration Frequency of Treatment 1-2x/week Duration of Treatment 2 months Plan of Care Start Date 12/28/19 Plan of Care End Date 02/28/20 Next Visit Focus/Plan Next Note Type Treatment Note Next Visit Plan try to advance HEP w/exercises given from last session
--- NOTE | 2020-01-11 15:25 | PT.OTN ---
Current Diagnoses Spondylolisthesis, lumbar region (01/11/20) Trochanteric bursitis, right hip (01/11/20) Abnormal posture (01/11/20) Weakness (01/11/20) Physical Therapy Treatment Note PT-OP-A Visit Information Start: 12/27/19 18:04 Freq: Status: Active Protocol: Document 01/11/20 14:38 [facility] (Rec: 01/11/20 15:25 [facility] [id number]) Out-Patient Physical Therapy Visit Information Visit Information Visit Type Treatment Note Visit Start Time 14:34 Visit Stop Time 15:13 Total Visit Minutes 39 Visit Number 4 Number of DOMESTIC FREIGHT FORWARDER Visits 0 PT-OP-B Current Condition Start: 12/27/19 18:04 Freq: Status: Active Protocol: Document 12/28/19 16:09 [facility] (Rec: 12/28/19 16:50 [facility] [id number]) Current Condition History of Current Condition Onset Date Jul Current Complaints R hip pain History of Current Condition Pt was working on hip R ROM and pushed it in PT around begining of Jul and started having apin in lat hip and ant hip. Pt reports she fell on her tailbone as a kid and broke that. No sitting issues now except she gets stiff. She started celebrex and couldn't get her sock on but now can since being on Celebrex. Pt reports she was seeing pelvic floor therapist and now has a pesary and no issues. Pt reports celebrex has helped ability to lay on hip. Pt has been gardening but gets down to a knee pad. Pt reports L ankle has gotten a little bigger recently. Pt reports some neuropathy in hands when first waking up. Gets stiff in legs whens tanding extended Prior Treatments and Tests MD krystal gave some gentle stretching exercises Treatment Goals Patient/Caregiver Goals Be able to get socks on, stay flexible PT-OP-C Subjective Start: 12/27/19 18:04 Freq: Status: Active Protocol: Document 01/11/20 14:38 [facility] (Rec: 01/11/20 15:25 [facility] [id number]) OP-PT Subjective Patient Comments Patient Comments Pt reports soreness initially after session but none noted over today or yesterday PT-OP-F Manual Assessment Start: 12/27/19 18:04 Freq: Status: Active Protocol: Document 12/28/19 16:09 [facility] (Rec: 12/28/19 16:50 [facility] [id number]) Manual Assessments Soft Tissue Assessment Soft Tissue Mobility Assessment tightness to ITB R & glutes & piriformis Joint Mobility Assessment Joint Mobility Assessment R iliac crest higher PT-OP-G Mobility & Gait Start: 12/27/19 18:04 Freq: Status: Active Protocol: Document 12/28/19 16:09 [facility] (Rec: 12/28/19 16:50 [facility] [id number]) OP Gait Assessment Comments Gait Comments slight dec push off PT-OP-J Posture/Palpation/Skin Start: 12/27/19 18:04 Freq: Status: Active Protocol: Document 12/28/19 16:09 [facility] (Rec: 12/28/19 16:50 [facility] [id number]) Posture Evaluation Comments Posture Comments inc kyphosis (pt reports this since a child) PT-OP-K Range of Motion Start: 12/27/19 18:04 Freq: Status: Active Protocol: Document 12/28/19 16:09 [facility] (Rec: 12/28/19 16:50 [facility] [id number]) Hip Goniometric Range of Motion Hip Left Active Flexion w/Knee Flexed 91 Abduction 29 Internal Rotation 20 External Rotation 25 Right Active Flexion w/Knee Flexed 81 Abduction 22 Internal Rotation 26 External Rotation 18 PT-OP-L Special Tests Start: 12/27/19 18:04 Freq: Status: Active Protocol: Document 12/28/19 16:09 [facility] (Rec: 12/28/19 16:50 [facility] [id number]) Special Tests Lumbar Spine Special Tests Je Test Results min tightness B RF & iliacus Straight Leg Raise Test Results mild tigthness Slump Test Results neg PT-OP-M Strength Start: 12/27/19 18:04 Freq: Status: Active Protocol: Document 12/28/19 16:09 [facility] (Rec: 12/28/19 16:50 [facility] [id number]) Hip Strength Hip Manual Muscle Testing Right Flexion (L2) 3+ Fair+ Extension (S1) 3+ Fair+ Abduction 3+ Fair+ External Rotation 3+ Fair+ Internal Rotation 3+ Fair+ Left Flexion (L2) 3+ Fair+ Extension (S1) 4- Good- Abduction 4- Good- Internal Rotation 4- Good- Knee Strength Knee Manual Muscle Testing Right Flexion (S2) 4+ Good+ Extension (L3) 4+ Good+ Left Flexion (S2) 4+ Good+ Extension (L3) 5 Normal PT-OP-Q Treatments Start: 12/27/19 18:04 Freq: Status: Active Protocol: Document 01/11/20 14:38 [facility] (Rec: 01/11/20 15:25 [facility] [id number]) Therapeutic Exercises Supine Exercises isometric Supine Exercise Name double leg Side bilateral Reps/Minutes 15 sec x2 stretch Supine Exercise Name piriformis stretch & cross body TFL stretch Side bilateral Reps/Minutes 30 sec ea TA Supine Exercise Name march w/core Side bilateral Reps/Minutes 15 Bridge Supine Exercise Name alt march Side bilateral Reps/Minutes 15x2 Comments focus on core Sidelying Exercises IR Sidelying Exercise Name Hip Side right Reps/Minutes 15 ER Sidelying Exercise Name hip Side bilateral Equipment Used L1 Reps/Minutes 15 Standing Exercises sidestep Standing Exercise Name focus on core & no lat lean Side bilateral Equipment Used L1 Reps/Minutes 20ft Manual Therapy Treatment Soft Tissue Mobilization piriformis Body Location R Mobilization Type Rolling,Sustained Pressure Intensity/Depth Moderate Body Position Prone Comments w/IR/ER PT-OP-T Assessment and Plan Start: 12/27/19 18:04 Freq: Status: Active Protocol: Document 01/11/20 14:38 [facility] (Rec: 01/11/20 15:25 [facility] [id number]) Physical Therapy Assessment Goals Three Halfway Goal (LTG) Pt will report no greater than 2/10 pain in her hip on a typical day. LTG Duration 02/28/20 Two Short Term Goal (STG) Pt will inc ROM of flex and ER to equal of the other side. STG Duration 01/28/20 Halfway Goal (LTG) Pt will be able to put on socks and shoes indep without inc pain. LTG Duration 02/28/20 One Short Term Goal (STG) Pt will be indep with HEP. STG Duration 01/28/20 Halfway Goal (LTG) pt will show improved strength to make daily activities easier with dec stiffness by having at least 4/5 LE strength and 2/5 LPM. LTG Duration 02/28/20 Assessment Summary Assessment Pt did wel lwith exercises with ability to add inc resistance with some but cueing required for form especailly with hip strengthening ones to avoid trunk motion. Physical Therapy Plan Frequency and Duration Frequency of Treatment 1-2x/week Duration of Treatment 2 months Plan of Care Start Date 12/28/19 Plan of Care End Date 02/28/20 Next Visit Focus/Plan Next Note Type Treatment Note Next Visit Plan review HEP as needed, cont to work on R hip mobility
--- NOTE | 2020-01-16 13:49 | PT.OTN ---
Current Diagnoses Spondylolisthesis, lumbar region (01/16/20) Trochanteric bursitis, right hip (01/16/20) Abnormal posture (01/16/20) Weakness (01/16/20) Physical Therapy Treatment Note PT-OP-A Visit Information Start: 12/27/19 18:04 Freq: Status: Active Protocol: Document 01/16/20 13:02 [facility] (Rec: 01/16/20 13:49 [facility] [id number]) Out-Patient Physical Therapy Visit Information Visit Information Visit Type Treatment Note Visit Start Time 13:01 Visit Stop Time 13:41 Total Visit Minutes 40 Visit Number 5 Number of RUG RENOVATOR Visits 0 PT-OP-B Current Condition Start: 12/27/19 18:04 Freq: Status: Active Protocol: Document 12/28/19 16:09 [facility] (Rec: 12/28/19 16:50 [facility] [id number]) Current Condition History of Current Condition Onset Date Jul Current Complaints R hip pain History of Current Condition Pt was working on hip R ROM and pushed it in PT around begining of Jul and started having apin in lat hip and ant hip. Pt reports she fell on her tailbone as a kid and broke that. No sitting issues now except she gets stiff. She started celebrex and couldn't get her sock on but now can since being on Celebrex. Pt reports she was seeing pelvic floor therapist and now has a pesary and no issues. Pt reports celebrex has helped ability to lay on hip. Pt has been gardening but gets down to a knee pad. Pt reports L ankle has gotten a little bigger recently. Pt reports some neuropathy in hands when first waking up. Gets stiff in legs whens tanding extended Prior Treatments and Tests MD krystal gave some gentle stretching exercises Treatment Goals Patient/Caregiver Goals Be able to get socks on, stay flexible PT-OP-C Subjective Start: 12/27/19 18:04 Freq: Status: Active Protocol: Document 01/16/20 13:02 [facility] (Rec: 01/16/20 13:49 [facility] [id number]) OP-PT Subjective Patient Comments Patient Comments Pt reports no pain but wants to review exercises for form PT-OP-F Manual Assessment Start: 12/27/19 18:04 Freq: Status: Active Protocol: Document 12/28/19 16:09 [facility] (Rec: 12/28/19 16:50 [facility] [id number]) Manual Assessments Soft Tissue Assessment Soft Tissue Mobility Assessment tightness to ITB R & glutes & piriformis Joint Mobility Assessment Joint Mobility Assessment R iliac crest higher PT-OP-G Mobility & Gait Start: 12/27/19 18:04 Freq: Status: Active Protocol: Document 12/28/19 16:09 [facility] (Rec: 12/28/19 16:50 [facility] [id number]) OP Gait Assessment Comments Gait Comments slight dec push off PT-OP-J Posture/Palpation/Skin Start: 12/27/19 18:04 Freq: Status: Active Protocol: Document 12/28/19 16:09 [facility] (Rec: 12/28/19 16:50 [facility] [id number]) Posture Evaluation Comments Posture Comments inc kyphosis (pt reports this since a child) PT-OP-K Range of Motion Start: 12/27/19 18:04 Freq: Status: Active Protocol: Document 12/28/19 16:09 [facility] (Rec: 12/28/19 16:50 [facility] [id number]) Hip Goniometric Range of Motion Hip Left Active Flexion w/Knee Flexed 91 Abduction 29 Internal Rotation 20 External Rotation 25 Right Active Flexion w/Knee Flexed 81 Abduction 22 Internal Rotation 26 External Rotation 18 PT-OP-L Special Tests Start: 12/27/19 18:04 Freq: Status: Active Protocol: Document 12/28/19 16:09 [facility] (Rec: 12/28/19 16:50 [facility] [id number]) Special Tests Lumbar Spine Special Tests Je Test Results min tightness B RF & iliacus Straight Leg Raise Test Results mild tigthness Slump Test Results neg PT-OP-M Strength Start: 12/27/19 18:04 Freq: Status: Active Protocol: Document 12/28/19 16:09 [facility] (Rec: 12/28/19 16:50 [facility] [id number]) Hip Strength Hip Manual Muscle Testing Right Flexion (L2) 3+ Fair+ Extension (S1) 3+ Fair+ Abduction 3+ Fair+ External Rotation 3+ Fair+ Internal Rotation 3+ Fair+ Left Flexion (L2) 3+ Fair+ Extension (S1) 4- Good- Abduction 4- Good- Internal Rotation 4- Good- Knee Strength Knee Manual Muscle Testing Right Flexion (S2) 4+ Good+ Extension (L3) 4+ Good+ Left Flexion (S2) 4+ Good+ Extension (L3) 5 Normal PT-OP-Q Treatments Start: 12/27/19 18:04 Freq: Status: Active Protocol: Document 01/16/20 13:02 [facility] (Rec: 01/16/20 13:49 [facility] [id number]) Gym Equipment Shuttle Balance wt shifts Details fwd/back & side/side red clips Comments fwd & side:WBOS & NBOS Therapeutic Exercises Supine Exercises isometric Supine Exercise Name double leg Side bilateral Reps/Minutes 15 sec x4 stretch Supine Exercise Name piriformis stretch & cross body TFLstretch Side bilateral Reps/Minutes 30 sec ea TA Supine Exercise Name alt march w/core Side bilateral Reps/Minutes 15 Bridge Supine Exercise Name alt march Side bilateral Reps/Minutes 8 Comments focus on core Sidelying Exercises ER Sidelying Exercise Name hip Side bilateral Equipment Used L2 Reps/Minutes 15 Standing Exercises sidestep Standing Exercise Name focus on core & no lat lean Side bilateral Equipment Used L2 Reps/Minutes 20ft Self-Care/Home Management Treatment Education Other Education edu of exercise cont after dc, discussed community options for aqua & yoga & core exercise classes PT-OP-T Assessment and Plan Start: 12/27/19 18:04 Freq: Status: Active Protocol: Document 01/16/20 13:02 [facility] (Rec: 01/16/20 13:49 [facility] [id number]) Physical Therapy Assessment Goals Three Senior Living Goal (LTG) Pt will report no greater than 2/10 pain in her hip on a typical day. LTG Duration 02/28/20 Two Short Term Goal (STG) Pt will inc ROM of flex and ER to equal of the other side. STG Duration 01/28/20 Metal Spinner Goal (LTG) Pt will be able to put on socks and shoes indep without inc pain. LTG Duration 02/28/20 One Short Term Goal (STG) Pt will be indep with HEP. STG Duration 01/28/20 Senior Living Goal (LTG) pt will show improved strength to make daily activities easier with dec stiffness by having at least 4/5 LE strength and 2/5 LPM. LTG Duration 02/28/20 Assessment Summary Assessment Pt required cueing throughout exercises for core activiation & form. She required cues during balance for postureal stability. Encouraged to consider community exercise courses and cont HEP at end of therapy Physical Therapy Plan Frequency and Duration Frequency of Treatment 1-2x/week Duration of Treatment 2 months Plan of Care Start Date 12/28/19 Plan of Care End Date 02/28/20 Next Visit Focus/Plan Next Note Type Treatment Note Next Visit Plan review HEP as needed, cont to work on R hip mobility
--- NOTE | 2020-01-23 12:59 | PT.OTN ---
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 Pt reports she fell on her tailbone as a kid and broke that. No sitting issues now except she gets stiff. She started celebrex and couldn't get her sock on but now can since being on Celebrex. Pt reports she was seeing pelvic floor therapist and now has a pesary and no issues. Pt reports celebrex has helped ability to lay on hip. Pt has been gardening but gets down to a knee pad. Pt reports L ankle has gotten a little bigger recently. Pt reports some neuropathy in hands when first waking up. Gets stiff in legs whens tanding extended Prior Treatments and Tests MD krystal gave some gentle stretching exercises Treatment Goals Patient/Caregiver Goals Be able to get socks on, stay flexible PT-OP-C Subjective Start: 12/27/19 18:04 Freq: Status: Active Protocol: Document 01/23/20 12:14 SP (Rec: 01/23/20 13:04 SP [id number]) OP-PT Subjective Patient Comments Patient Comments Pt reports no pain, if stay in one position to long gets stiff. Was able to walk about 2 miles to help keep loosened up during virtual conference. When wakes up with B hands tingling but once moves around while still laying down or up and about, goes away. But if does alot maual hand labor, ex gardening at family, pays for it the next day. PT-OP-F Manual Assessment Start: 12/27/19 18:04 Freq: Status: Active Protocol: Document 12/28/19 16:09 [facility] (Rec: 12/28/19 16:50 [facility] [id number]) Manual Assessments Soft Tissue Assessment Soft Tissue Mobility Assessment tightness to ITB R & glutes & piriformis Joint Mobility Assessment Joint Mobility Assessment R iliac crest higher PT-OP-G Mobility & Gait Start: 12/27/19 18:04 Freq: Status: Active Protocol: Document 12/28/19 16:09 [facility] (Rec: 12/28/19 16:50 [facility] [id number]) OP Gait Assessment Comments Gait Comments slight dec push off PT-OP-J Posture/Palpation/Skin Start: 12/27/19 18:04 Freq: Status: Active Protocol: Document 12/28/19 16:09 [facility] (Rec: 12/28/19 16:50 [facility] [id number]) Posture Evaluation Comments Posture Comments inc kyphosis (pt reports this since a child) PT-OP-K Range of Motion Start: 12/27/19 18:04 Freq: Status: Active Protocol: Document 12/28/19 16:09 [facility] (Rec: 12/28/19 16:50 [facility] [id number]) Hip Goniometric Range of Motion Hip Left Active Flexion w/Knee Flexed 91 Abduction 29 Internal Rotation 20 External Rotation 25 Right Active Flexion w/Knee Flexed 81 Abduction 22 Internal Rotation 26 External Rotation 18 PT-OP-L Special Tests Start: 12/27/19 18:04 Freq: Status: Active Protocol: Document 12/28/19 16:09 [facility] (Rec: 12/28/19 16:50 [facility] [id number]) Special Tests Lumbar Spine Special Tests Je Test Results min tightness B RF & iliacus Straight Leg Raise Test Results mild tigthness Slump Test Results neg PT-OP-M Strength Start: 12/27/19 18:04 Freq: Status: Active Protocol: Document 12/28/19 16:09 [facility] (Rec: 12/28/19 16:50 [facility] [id number]) Hip Strength Hip Manual Muscle Testing Right Flexion (L2) 3+ Fair+ Extension (S1) 3+ Fair+ Abduction 3+ Fair+ External Rotation 3+ Fair+ Internal Rotation 3+ Fair+ Left Flexion (L2) 3+ Fair+ Extension (S1) 4- Good- Abduction 4- Good- Internal Rotation 4- Good- Knee Strength Knee Manual Muscle Testing Right Flexion (S2) 4+ Good+ Extension (L3) 4+ Good+ Left Flexion (S2) 4+ Good+ Extension (L3) 5 Normal PT-OP-Q Treatments Start: 12/27/19 18:04 Freq: Status: Active Protocol: Document 01/23/20 12:14 SP (Rec: 01/23/20 13:04 SP [id number]) Therapeutic Exercises Supine Exercises isometric Supine Exercise Name double leg Side bilateral Reps/Minutes 15 sec x4 stretch Supine Exercise Name piriformis stretch & cross body TFLstretch Side right Reps/Minutes 30 sec TA Supine Exercise Name alt march w/core Side bilateral Reps/Minutes 15 Comments cued slow eccentric control for core facilitation Bridge Supine Exercise Name alt march Side bilateral Reps/Minutes 8 Comments focus on core Sitting Exercises Hip Er stretch Side right Reps/Minutes 2 min Comments good tolerance, cued relax hip and support foot on other leg Standing Exercises sidestep Standing Exercise Name focus on core & no lat lean Comments forward,back, side stepping with cuing abd focus and hip hinge COG over KARINA PT-OP-T Assessment and Plan Start: 12/27/19 18:04 Freq: Status: Active Protocol: Document 01/23/20 12:14 SP (Rec: 01/23/20 13:04 SP [id number]) Physical Therapy Assessment Goals Three Group Home Goal (LTG) Pt will report no greater than 2/10 pain in her hip on a typical day. LTG Duration 02/28/20 Two Short Term Goal (STG) Pt will inc ROM of flex and ER to equal of the other side. STG Duration 01/28/20 Public Health Representative Goal (LTG) Pt will be able to put on socks and shoes indep without inc pain. LTG Duration 02/28/20 One Short Term Goal (STG) Pt will be indep with HEP. STG Duration 01/28/20 Public Health Representative Goal (LTG) pt will show improved strength to make daily activities easier with dec stiffness by having at least 4/5 LE strength and 2/5 LPM. LTG Duration 02/28/20 Assessment Summary Assessment Tx focused on HEP review core and hip strengthening added f/ b band walk with good hip muscle strengthening cued for not eccentric control to allow for muscle activation, then flexibilitiy R hip with added je and pirformis stretch with good feedback results its tight but then loosens up, I can do this at home. Physical Therapy Plan Frequency and Duration Frequency of Treatment 1-2x/week Duration of Treatment 2 months Plan of Care Start Date 12/28/19 Plan of Care End Date 02/28/20 Therapeutic Interventions Therapeutic Interventions Aquatic Therapy,Balance Training,Gait Training,Home Exercise Program,Joint Mobilizations,Manual Therapy, Neuromuscular Re-education, Patient/Caregiver Education, Self-Care/Home Management,Soft Tissue Mobilization,Taping, Therapeutic Activities, Therapeutic Exercises Modalities Cold Pack/Ice Massage,Electric Stimulation,Hot Packs, Infrared Therapy,Traction- Mechanical,Ultrasound Next Visit Focus/Plan Next Note Type Treatment Note Next Visit Plan Reassess response to last tx: review HEP and added hip stretching and f/b to band walk, improved core decrease side bend. cont to work on R hip mobility
--- NOTE | 2020-02-01 12:10 | PT.OTN ---
Current Diagnoses Spondylolisthesis, lumbar region (02/01/20) Trochanteric bursitis, right hip (02/01/20) Abnormal posture (02/01/20) Weakness (02/01/20) Physical Therapy Treatment Note PT-OP-A Visit Information Start: 12/27/19 18:04 Freq: Status: Active Protocol: Document 02/01/20 11:23 [facility] (Rec: 02/01/20 12:10 [facility] [id number]) Out-Patient Physical Therapy Visit Information Visit Information Visit Type Discharge Summary Visit Start Time 11:18 Visit Stop Time 11:58 Total Visit Minutes 40 Visit Number 7 Number of CAP INSPECTOR Visits 0 PT-OP-B Current Condition Start: 12/27/19 18:04 Freq: Status: Active Protocol: Document 12/28/19 16:09 [facility] (Rec: 12/28/19 16:50 [facility] [id number]) Current Condition History of Current Condition Onset Date Jul Current Complaints R hip pain History of Current Condition Pt was working on hip R ROM and pushed it in PT around begining of Jul and started having apin in lat hip and ant hip. Pt reports she fell on her tailbone as a kid and broke that. No sitting issues now except she gets stiff. She started celebrex and couldn't get her sock on but now can since being on Celebrex. Pt reports she was seeing pelvic floor therapist and now has a pesary and no issues. Pt reports celebrex has helped ability to lay on hip. Pt has been gardening but gets down to a knee pad. Pt reports L ankle has gotten a little bigger recently. Pt reports some neuropathy in hands when first waking up. Gets stiff in legs whens tanding extended Prior Treatments and Tests MD krystal gave some gentle stretching exercises Treatment Goals Patient/Caregiver Goals Be able to get socks on, stay flexible PT-OP-C Subjective Start: 12/27/19 18:04 Freq: Status: Active Protocol: Document 02/01/20 11:23 [facility] (Rec: 02/01/20 12:10 [facility] [id number]) OP-PT Subjective Patient Comments Patient Comments Pt feels like she does not need therapy anmore Patient Reported Progress Improving PT-OP-F Manual Assessment Start: 12/27/19 18:04 Freq: Status: Active Protocol: Document 12/28/19 16:09 [facility] (Rec: 12/28/19 16:50 [facility] [id number]) Manual Assessments Soft Tissue Assessment Soft Tissue Mobility Assessment tightness to ITB R & glutes & piriformis Joint Mobility Assessment Joint Mobility Assessment R iliac crest higher PT-OP-G Mobility & Gait Start: 12/27/19 18:04 Freq: Status: Active Protocol: Document 12/28/19 16:09 [facility] (Rec: 12/28/19 16:50 [facility] [id number]) OP Gait Assessment Comments Gait Comments slight dec push off PT-OP-J Posture/Palpation/Skin Start: 12/27/19 18:04 Freq: Status: Active Protocol: Document 12/28/19 16:09 [facility] (Rec: 12/28/19 16:50 [facility] [id number]) Posture Evaluation Comments Posture Comments inc kyphosis (pt reports this since a child) PT-OP-K Range of Motion Start: 12/27/19 18:04 Freq: Status: Active Protocol: Document 02/01/20 11:23 [facility] (Rec: 02/01/20 12:10 [facility] [id number]) Hip Goniometric Range of Motion Hip Right Active Flexion w/Knee Flexed 97 Abduction 22 Internal Rotation 41 External Rotation 31 PT-OP-L Special Tests Start: 12/27/19 18:04 Freq: Status: Active Protocol: Document 12/28/19 16:09 [facility] (Rec: 12/28/19 16:50 [facility] [id number]) Special Tests Lumbar Spine Special Tests Je Test Results min tightness B RF & iliacus Straight Leg Raise Test Results mild tigthness Slump Test Results neg PT-OP-M Strength Start: 12/27/19 18:04 Freq: Status: Active Protocol: Document 02/01/20 11:23 [facility] (Rec: 02/01/20 12:10 [facility] [id number]) Hip Strength Hip Manual Muscle Testing Right Flexion (L2) 5 Normal Extension (S1) 4 Good Abduction 5 Normal Adduction 4+ Good+ External Rotation 5 Normal Internal Rotation 5 Normal Left Flexion (L2) 5 Normal Extension (S1) 4 Good Abduction 4+ Good+ Adduction 5 Normal External Rotation 5 Normal Internal Rotation 5 Normal Knee Strength Knee Manual Muscle Testing Right Flexion (S2) 5 Normal Extension (L3) 5 Normal Left Flexion (S2) 5 Normal Extension (L3) 5 Normal PT-OP-Q Treatments Start: 12/27/19 18:04 Freq: Status: Active Protocol: Document 02/01/20 11:23 [facility] (Rec: 02/01/20 12:10 [facility] [id number]) Gym Equipment Shuttle Balance wt shifts Details fwd/back & side/side red clips Comments fwd & side:WBOS & NBOS fwd staggered stance Therapeutic Exercises Supine Exercises isometric Supine Exercise Name double leg Side bilateral Reps/Minutes 15 sec x2 TA Supine Exercise Name alt march w/core Side bilateral Reps/Minutes 15 Comments cued slow eccentric control for core facilitation Prone Exercises ext Side bilateral Reps/Minutes 10 Sidelying Exercises ER Sidelying Exercise Name hip Side bilateral Equipment Used L2 Reps/Minutes 15 Standing Exercises sidestep Standing Exercise Name focus on core & no lat lean Equipment Used L2 Reps/Minutes 20ft Neuro Re-Education Treatment Balance Activities tandem stance Details B by counter SLS Details B by counter PT-OP-T Assessment and Plan Start: 12/27/19 18:04 Freq: Status: Active Protocol: Document 02/01/20 11:23 [facility] (Rec: 02/01/20 12:10 [facility] [id number]) Physical Therapy Assessment Goals Three Penitentiary Goal (LTG) Pt will report no greater than 2/10 pain in her hip on a typical day. LTG Duration achieved Two Short Term Goal (STG) Pt will inc ROM of flex and ER to equal of the other side. STG Duration achieved Penitentiary Goal (LTG) Pt will be able to put on socks and shoes indep without inc pain. LTG Duration achieved One Short Term Goal (STG) Pt will be indep with HEP. STG Duration achieved Plating And Point Assembly Supervisor Goal (LTG) pt will show improved strength to make daily activities easier with dec stiffness by having at least 4/5 LE strength and 2/5 LPM. LTG Duration achieved LPM 3/5 in all planes Assessment Summary Assessment Pt did well with all exercises with min cueing for focus on core stability & neutral positioning. Administered balance exercises for home also d/t pt wanting to work on that. Physical Therapy Plan Discharge Physical Therapy Discharge Reasons Goals Met
== END 2020-02-02 11:25 | disposition home or self-care (01) ==
LOC: PHYS 11:15
PROVIDERS: PCP Internal Medicine; Referring Provider Physical Medicine & Rehabilitation; Visit Provider Physical Medicine & Rehabilitation
DX: M43.16 Spondylolisthesis, lumbar region (principal); M70.61 Trochanteric bursitis, right hip; R53.1 Weakness; R29.3 Abnormal posture
CPT/HCPCS: 97110; 97112; 97140; 97161

== ENCOUNTER → 2020-03-07 | Outpatient (CLI) | payer MEDICARE, OTHER, SELFPAY | PROVIDERS: PCP Internal Medicine; Referring Provider Internal Medicine; Visit Provider Internal Medicine | DX: Z23 Encounter for immunization (principal) | CPT/HCPCS: 90471; 90662 ==

== ENCOUNTER → 2020-03-12 07:52 | Outpatient (CLI) | payer MEDICARE, OTHER, SELFPAY ==
[2020-03-12 08:52] LABS: Alanine Aminotransferase 30 IU/L (<35); Albumin 4.2 g/dL (3.5-5.0); Albumin Globulin Ratio 1.4 (1.0-2.8); Alkaline Phosphatase 85 U/L (38-126); Aspartate Aminotransferase 32 IU/L (14-36); BUN Creatinine Ratio 30.7 (6-22); Bilirubin Total 0.5 mg/dL (0.2-1.3); Blood Urea Nitrogen 23 mg/dL (7-17); Calcium 9.4 mg/dL (8.4-10.2); Carbon Dioxide 32 mmol/L (22-32); Chloride 104 mmol/L (98-107); Cholesterol 185 mg/dL (140-199); Estimated Glomerular Filt Rate > 60.0 mL/min (>60); Globulin 2.9 g/dL (1.7-4.1); Glucose 93 mg/dL (80-110); HDL Cholesterol 62 mg/dL (40-60); HEMOLYSIS < 15 (0-50); LDL Cholesterol Calculated 101 mg/dL (<100); Potassium 4.2 mmol/L (3.4-5.1); Sodium 139 mmol/L (137-145); Total Protein 7.1 g/dL (6.3-8.2); Triglycerides 111 mg/dL (35-150)
[2020-03-12 09:25] LABS: TSH w/ Reflex to FT4 2.31 uIU/mL (0.47-4.68)
[2020-03-12 09:41] LABS: Vitamin B12 842 pg/mL (239-931)
== END ==
PROVIDERS: PCP Internal Medicine; Referring Provider Internal Medicine; Visit Provider Internal Medicine
DX: I10 Essential (primary) hypertension (principal); E78.2 Mixed hyperlipidemia; R20.0 Anesthesia of skin; E03.9 Hypothyroidism, unspecified
CPT/HCPCS: 36415; 80053; 80061; 82607; 84443

== ENCOUNTER 2020-04-09 13:52 | Emergency (ER) | payer MEDICARE, OTHER, SELFPAY ==
[2020-04-09 13:58] VITALS: BP 181/82; PULSE 69; RESP 16; TEMP 35.6; O2SAT 97; BMI 31.6
--- NOTE | 2020-04-09 14:13 | ED_ITS ---
HPI - Wound/Laceration <SERGIO Springer - Last Filed: 04/09/20 14:23> General Chief Complaint: Wound/Laceration Stated Complaint: injury to head Time Seen by Provider: 04/09/20 13:54 Source: patient Mode of arrival: Ambulatory History of Present Illness HPI narrative: 74-year-old female with a history of hypertension, hyperlipidemia, presents to the emergency department for a laceration to her forehead. She states she was hanging a draft roller picker on the wall and fell and hit her in the middle of her forehead. She applied pressure to the area immediately when she noticed a small amount of blood. Patient denies any dizziness, syncope, nausea, vomiting, diarrhea, chest pain, shortness of breath, vision changes, or any other symptoms. She denies any symptoms pre or post accident. She is not taking any blood thinners. Related Data Home Medications Medication Instructions Recorded Confirmed Calcium (#CALCIUM 500) 500 mg PO BID #0 11/11/11 01/18/20 LEVOTHYROXINE SODIUM (LEVOTHROID) 0.75 mg PO QDAY #0 11/11/11 01/18/20 atorvastatin [Lipitor] 20 mg PO HS #0 11/11/11 01/18/20 olmesartan [Benicar] 20 mg PO QDAY #0 11/11/11 01/18/20 CA PANTOTHENATE/FOLIC ACID/VIT 1 tab PO QDAY #0 11/02/12 01/18/20 (MULTIVITAMIN) Coenzyme Q10 (COENZYME Q10~) 60 mg PO QDAY #0 11/02/12 01/18/20 Previous Rx's Medication Instructions Recorded celecoxib 200 mg capsule 200 mg PO DAILY #90 cap 01/18/20 Allergies Allergy/AdvReac Type Severity Reaction Status Date / Time lisinopril AdvReac Mild Cough Verified 04/09/20 13:58 Review of Systems <SERGIO Springer - Last Filed: 04/09/20 14:23> Review of Systems Narrative: REVIEW OF SYSTEMS: GENERAL: Denies fever or chills. HENT: Complains of head trauma, HPI. EYES: No loss of vision, double vision, eye pain, or irritation. CARDIOVASCULAR: No chest pain or syncope. RESPIRATORY: No shortness of breath or cough. GASTROINTESTINAL: No nausea, vomiting, diarrhea, or constipation. MUSCULOSKELETAL: No pain. INTEGUMENTARY: Complains of laceration to head, see HPI. NEURO: No numbness, tingling, memory loss, or confusion. PSYCH: No behavior or mood changes. Patient History <SERGIO Springer - Last Filed: 04/09/20 14:23> Medical History Colon polyps (Acute) Diverticular disease (Chronic) Frequent UTI (Chronic) Greater trochanteric bursitis of right hip (Acute) Gynecologic disorder (Chronic) H/O vaginal delivery (Acute) Lichen planus (Chronic) Lumbar spondylosis (Acute) Lumbosacral radiculopathy at L4 (Acute) Positive PPD (Resolved) Right hip pain (Acute) Spondylolisthesis at L4-L5 level (Acute) Urinary urgency (Chronic) Vision disorder (Chronic) Surgical History Anesthesia (Resolved) History of colonoscopy (Resolved) Status post surgery (03/10/13) Superficial varicosities (Resolved) Family History Sister Cancer Grandfather No problems noted. Grandmother CVA (cerebral vascular accident) Grandfather History of heart disease Grandmother CVA (cerebral vascular accident) Social History Smoking Status: Never smoker Smoking Status: Never smoker Exam <SERGIO Springer - Last Filed: 04/09/20 14:23> Initial Vital Signs Initial Vital Signs: Vital Signs Temperature 96.1 F L 04/09/20 13:58 Pulse Rate 69 04/09/20 13:58 Respiratory Rate 16 04/09/20 13:58 Blood Pressure 181/82 H 04/09/20 13:58 Pulse Oximetry 97 04/09/20 13:58 PHYSICAL EXAMINATION: GENERAL: Well groomed, alert, and cooperative. Answers questions promptly and appropriately. Vital signs noted. HENT: Normocephalic. Ear canals patent. Oral mucosa is pink and moist. A sup erficial laceration noted to hairline of mid forehead, it is of wound intact and close without need for intervention. EYES: PERRLA, EOMIs, conjunctiva pink, sclera white, no periorbital swelling. NECK: Full ROM, no midline or spinal tenderness. CARDIOVASCULAR: S1 and S2 sounds normal. Regular rate and rhythm, no murmurs, clicks, or bruits. RESPIRATORY: Normal respiratory rate, trachea midline, airway patent. No stridor, nasal flaring or accessory muscle use. Lungs are clear in all fox without wheeze, rhonchi, or crackles. MUSCULOSKELETAL: Normal gait and coordination. Equal tone and mass bilaterally. Equal strength bilaterally to upper and lower extremities. No spinal tenderness. EXTREMITIES: CMS intact. Moves all extremities. SKIN: Warm, dry, soft, appropriate color for ethnicity. No lesions, rashes, or wounds to visualized areas. NEURO: Alert and Oriented X 3. GCS: 15. Good coordination. No ataxia, or sensory deficits, or cognitive issues. Cranial Nerves: II: Visual fox grossly intact. III & IV & : EOMIs V: Able to open and close jaw. VII: Facial movements symetrical. Able to close eyelids tightly. VIII: Hearing grossly intact, adequate balance. X: Uvula pronation intact. XI: Patient is able to shrug shoulders. XII: Patient is able to stick out tongue and move it side to side. PSYCH: Appropriate affect and mood. <Diaz Chiang DO - Last Filed: 04/09/20 17:14> Initial Vital Signs Initial Vital Signs: Vital Signs Temperature 96.1 F L 04/09/20 13:58 Pulse Rate 69 04/09/20 13:58 Respiratory Rate 16 04/09/20 13:58 Blood Pressure 181/82 H 04/09/20 13:58 Pulse Oximetry 97 04/09/20 13:58 Course <SERGIO Springer - Last Filed: 04/09/20 14:23> Course Course Narrative: Bacitracin applied to wound. Orders Ordered: Discontinued Medications Bacitracin (Bacitracin) 1 applic TOP NOW ONE Stop: 04/09/20 14:09 Last Admin: 04/09/20 14:19 Dose: 1 applic Documented by: AFTAB Vital Signs Vital signs: Vital Signs - 8 hr 04/09/20 13:58 Temperature 96.1 F L Pulse Rate 69 Respiratory Rate 16 Blood Pressure 181/82 H Pulse Oximetry 97 <DO Deshawn Vernon Last Filed: 04/09/20 17:14> Orders Ordered: Discontinued Medications Bacitracin (Bacitracin) 1 applic TOP NOW ONE Stop: 04/09/20 14:09 Last Admin: 04/09/20 14:19 Dose: 1 applic Documented by: AFTAB Vital Signs Vital signs: Vital Signs - 8 hr 04/09/20 13:58 Temperature 96.1 F L Pulse Rate 69 Respiratory Rate 16 Blood Pressure 181/82 H Pulse Oximetry 97 [facility] - Wound/Laceration <KatieSERGIO Winn - Last Filed: 04/09/20 14:23> Medical Records Attestation: I reviewed the patient's medical records. Lab Data Attestation: I reviewed the patient's lab results. [facility] Narrative Medical decision making narrative: 74-year-old female presents emergency department post head trauma, reports a small black. No indication for CT given no neurological deficits, patient currently not on blood thinners, no other concerning symptoms such as syncope, vomiting, or headache. Additionally, patient has small non suturable or glue indicated for lac to forehead as edges are approximated and together. Patient was given instructions about concussion, encouraged to use ice and Tylenol as needed. Strict ED return precautions given for new or worsening symptoms. She agrees to plan of care verbalized understanding. Discharge Plan Departure Patient Disposition: Home Clinical Impression: Head injury Qualifiers: Encounter type: initial encounter Qualified Code(s): S09.90XA - Unspecified injury of head, initial encounter Discharge Date/Time: 04/09/20 14:24 Instructions: DI for Closed Head Injury Activity Restrictions/Additional Instructions: Thank you for entrusting me with your care today. As discussed, no osiris, glue, or sutures needed today. You may experience mild headaches that are worse with light and staring a screen over the next few days. Take Tylenol as needed for pain, rest, ice the area. Apply Neosporin or bacitracin to the wound 1 to 2 times a day. Follow-up with PCP in the next few weeks if symptoms continue. Return emergency department for any new or worsening symptoms. Prescriptions: No Action olmesartan [Benicar] 20 MG tablet 20 mg PO QDAY Qty: 0 RF: 0 LEVOTHYROXINE SODIUM (LEVOTHROID) 0.75 mg PO QDAY Qty: 0 RF: 0 atorvastatin [Lipitor] 20 MG tablet 20 mg PO HS Qty: 0 RF: 0 Calcium (#CALCIUM 500) 500 mg PO BID Qty: 0 RF: 0 Coenzyme Q10 (COENZYME Q10~) 60 mg PO QDAY Qty: 0 RF: 0 CA PANTOTHENATE/FOLIC ACID/VIT (MULTIVITAMIN) 1 tab PO QDAY Qty: 0 RF: 0 celecoxib [Celebrex] 200 mg capsule 200 mg PO DAILY Qty: 90 RF: 3 Referrals: [place] Givens MD [Primary Care Provider] - <Diaz Chiang DO - Last Filed: 04/09/20 17:14> Cosign ED Attending Cosignature Attestation: Dr Chiang Co-Sign Statement: I was available for consultation during this patient's emergency department visit. This chart is signed by myself for administrative purposes only. I did not have direct contact with this patient during this visit. They were seen independently by the APC.
[2020-04-09] MEDS: BACITRACIN OINT 0.9 GM PCKT 1 APPLIC TOP (14:19)
== END 2020-04-09 14:24 | disposition home or self-care (01) ==
LOC: ED 14:22
PROVIDERS: Emergency Provider Nurse Practitioner; PCP Internal Medicine
DX: S01.81XA Laceration without foreign body of other part of head, initial encounter (principal); S09.90XA Unspecified injury of head, initial encounter; W22.01XA Walked into wall, initial encounter
CPT/HCPCS: 99282

== ENCOUNTER → 2020-06-22 10:06 | Outpatient (CLI) | payer MEDICARE, OTHER, SELFPAY ==
[2020-06-22] MEDS: COVID-19 VACC #1, MRNA(MOD) 100 MCG/0.5 ML VIAL IM (10:10)
== END ==
PROVIDERS: PCP Internal Medicine; Visit Provider Internal Medicine
DX: Z23 Encounter for immunization (principal)
CPT/HCPCS: 0011A; 91301

== ENCOUNTER → 2020-07-20 10:23 | Outpatient (CLI) | payer MEDICARE, OTHER, SELFPAY ==
[2020-07-20] MEDS: COVID-19 VACC #2, MRNA(MOD) 100 MCG/0.5 ML VIAL IM (10:30)
== END ==
PROVIDERS: PCP Internal Medicine; Visit Provider Internal Medicine
DX: Z23 Encounter for immunization (principal)
CPT/HCPCS: 0012A; 91301

== ENCOUNTER → 2020-08-17 10:59 | Outpatient (CLI) | payer MEDICARE, OTHER, SELFPAY | PROVIDERS: PCP Internal Medicine; Visit Provider Physician Assistant | DX: R30.0 Dysuria (principal) | CPT/HCPCS: 87086 ==

== ENCOUNTER → 2021-04-12 15:51 | Outpatient (CLI) | payer MEDICARE, OTHER, SELFPAY ==
[2021-04-12] MEDS: COVID-19 VACC #3, MRNA(MOD) 50 MCG/0.25 ML VIAL IM (15:57)
== END ==
PROVIDERS: PCP Internal Medicine; Visit Provider Internal Medicine
DX: Z23 Encounter for immunization (principal)
CPT/HCPCS: 0013A; 91301

== ENCOUNTER → 2021-11-28 08:15 | Outpatient (CLI) | payer MEDICARE, OTHER, SELFPAY ==
[2021-11-28 09:16] LABS: Add Manual Diff / Slide Review NO; Basophils Absolute Auto 0 /uL (0-100); Basophils Percent Auto 0.9 % (0-2); Eosinophils Absolute Auto 100 /uL (0-450); Eosinophils Percent Auto 2.4 % (2-4); Hematocrit 40.1 % (36-46); Hemoglobin 13.7 g/dL (12.0-16.0); Lymphocytes Absolute Auto 1900 /uL (1100-4500); Lymphocytes Percent Auto 33.6 % (25-40); Mean Corpuscular Hemoglobin 30.7 PG (26-34); Mean Corpuscular Volume 90.2 fL (80-100); Monocytes Absolute Auto 300 /uL (0-900); Neutrophils Absolute Auto 3200 /uL (1500-7000); Neutrophils Percent Auto 57.1 % (50-75); Platelet Count 201 X10^3/uL (150-400); Red Blood Cell Count 4.45 X10^6/uL (4.0-5.2); Red Cell Distribution Width 13.3 % (11.6-14.8); White Blood Cell Count 5.6 X10^3/uL (4.5-11.0)
[2021-11-28 09:27] LABS: Alanine Aminotransferase 30 IU/L (<35); Albumin Globulin Ratio 1.7 (1.0-2.8); Alkaline Phosphatase 69 U/L (38-126); Aspartate Aminotransferase 30 IU/L (14-36); Bilirubin Total 0.5 mg/dL (0.2-1.3); Blood Urea Nitrogen 21 mg/dL (7-17); Calcium 9.2 mg/dL (8.4-10.2); Carbon Dioxide 28 mmol/L (22-32); Chloride 104 mmol/L (98-107); Estimated Glomerular Filt Rate > 60 mL/min (>60); Globulin 2.4 g/dL (1.7-4.1); Glucose 81 mg/dL (80-110); HEMOLYSIS < 15 (0-50); Potassium 4.5 mmol/L (3.4-5.1); Sodium 138 mmol/L (137-145); Total Protein 6.4 g/dL (6.3-8.2)
[2021-11-28 09:50] LABS: Bilirubin Unconjugated 0.4 mg/dL (0.0-1.1)
== END ==
PROVIDERS: PCP Internal Medicine; Referring Provider Dermatology; Visit Provider Dermatology
DX: L20.84 Intrinsic (allergic) eczema (principal); Z79.899 Other long term (current) drug therapy
CPT/HCPCS: 36415; 80053; 80076; 85025

== ENCOUNTER → 2021-12-06 08:03 | Outpatient (CLI) | payer MEDICARE, OTHER, SELFPAY ==
[2021-12-06 09:11] LABS: Add Manual Diff / Slide Review NO; Basophils Absolute Auto 0 /uL (0-100); Basophils Percent Auto 0.7 % (0-2); Eosinophils Absolute Auto 100 /uL (0-450); Eosinophils Percent Auto 2.5 % (2-4); Hematocrit 41.4 % (36-46); Hemoglobin 13.8 g/dL (12.0-16.0); Lymphocytes Absolute Auto 1500 /uL (1100-4500); Lymphocytes Percent Auto 26.6 % (25-40); Mean Corpuscular HGB Conc 33.4 % (30-36); Mean Corpuscular Hemoglobin 30.4 PG (26-34); Mean Corpuscular Volume 91.1 fL (80-100); Monocytes Absolute Auto 400 /uL (0-900); Monocytes Percent Auto 6.6 % (3-14); Neutrophils Absolute Auto 3700 /uL (1500-7000); Neutrophils Percent Auto 63.6 % (50-75); Platelet Count 212 X10^3/uL (150-400); Red Blood Cell Count 4.55 X10^6/uL (4.0-5.2); Red Cell Distribution Width 13.3 % (11.6-14.8); White Blood Cell Count 5.8 X10^3/uL (4.5-11.0)
[2021-12-06 09:37] LABS: Alanine Aminotransferase 28 IU/L (<35); Albumin Globulin Ratio 1.7 (1.0-2.8); Alkaline Phosphatase 69 U/L (38-126); Aspartate Aminotransferase 30 IU/L (14-36); BUN Creatinine Ratio 23.6 (6-22); Bilirubin Total 0.5 mg/dL (0.2-1.3); Bilirubin Unconjugated 0.5 mg/dL (0.0-1.1); Blood Urea Nitrogen 17 mg/dL (7-17); Calcium 9.2 mg/dL (8.4-10.2); Carbon Dioxide 30 mmol/L (22-32); Chloride 102 mmol/L (98-107); Estimated Glomerular Filt Rate > 60 mL/min (>60); Globulin 2.3 g/dL (1.7-4.1); Glucose 91 mg/dL (80-110); HEMOLYSIS < 15 (0-50); Potassium 4.3 mmol/L (3.4-5.1); Sodium 139 mmol/L (137-145); Total Protein 6.3 g/dL (6.3-8.2)
== END ==
PROVIDERS: PCP Internal Medicine; Referring Provider Dermatology; Visit Provider Dermatology
DX: L20.84 Intrinsic (allergic) eczema (principal); Z79.899 Other long term (current) drug therapy
CPT/HCPCS: 36415; 80053; 80076; 85025

== ENCOUNTER → 2022-02-28 15:36 | Outpatient (CLI) | payer MEDICARE, OTHER, SELFPAY ==
--- NOTE | 2022-02-28 15:38 | DI.MG.S_ITS ---
BILATERAL DIGITAL SCREENING MAMMOGRAM 3D/2D WITH CAD: 02/28/2022 CLINICAL: Routine screening. Comparison is made to exams dated: 03/05/2019 mammogram, 04/06/2014 mammogram, and 04/29/2010 mammogram - [facility]. There are scattered areas of fibroglandular density in both breasts (category b / 25%-50% glandular tissue). Current study was also evaluated with a Computer Aided Detection (CAD) system. No significant masses, calcifications, or other findings are seen in either breast. There has been no significant interval change. IMPRESSION: NEGATIVE There is no mammographic evidence of malignancy. A 1 year screening mammogram is recommended. Based on the Tyrer Cuzick model (a risk assessment model) the patient's lifetime risk is 3.2% and her 10 year risk is 2.9%. According to the ACR, ACS, and NCCN guidelines, an annual breast MRI exam along with mammogram is recommended if the patient's lifetime risk is 20% or greater. This exam was interpreted at Station ID: [id number]. NOTE: For mammograms, a report in lay terms will be sent to the patient. Approximately 15% of breast malignancies will not be visualized mammographically. In the management of a palpable breast mass, a negative mammogram must not discourage biopsy of a clinically suspicious lesion. Electronically Signed By: Johnathon ferrara/linda:02/28/2022 16:22:10 letter sent: Normal Exam ACR BI-RADS Category 1: Negative [id number]
== END ==
PROVIDERS: Referring Provider Internal Medicine; Visit Provider Internal Medicine
DX: Z12.31 Encounter for screening mammogram for malignant neoplasm of breast (principal)
CPT/HCPCS: 77063; 77067

== ENCOUNTER → 2022-03-26 17:21 | Outpatient (CLI) | payer MEDICARE, OTHER, SELFPAY | PROVIDERS: Referring Provider Internal Medicine; Visit Provider Internal Medicine | DX: Z23 Encounter for immunization (principal) | CPT/HCPCS: 90471; 90662 ==

== ENCOUNTER → 2023-03-26 14:50 | Outpatient (CLI) | payer MEDICARE, OTHER, SELFPAY | PROVIDERS: PCP Student in an Organized Health Care Education/Training Program; Referring Provider Family Medicine; Visit Provider Family Medicine | DX: Z23 Encounter for immunization (principal) | CPT/HCPCS: 90471; 90662 ==

== ENCOUNTER → 2023-04-29 14:05 | Outpatient (CLI) | payer MEDICARE, OTHER, SELFPAY ==
--- NOTE | 2023-04-29 | DI.MG.S_ITS ---
BILATERAL DIGITAL SCREENING MAMMOGRAM 3D/2D WITH CAD: 04/29/2023 CLINICAL: Routine screening. Comparison is made to exams dated: 03/05/2019 mammogram, 02/28/2022 mammogram, and 04/06/2014 mammogram - [facility]. There are scattered areas of fibroglandular density in both breasts (category b / 25%-50% glandular tissue). Current study was also evaluated with a Computer Aided Detection (CAD) system. No significant masses, calcifications, or other findings are seen in either breast. There has been no significant interval change. IMPRESSION: NEGATIVE There is no mammographic evidence of malignancy. A 1 year screening mammogram is recommended. Based on the Tyrer Cuzick model (a risk assessment model) the patient's lifetime risk is 2.9% and her 10 year risk is 2.9%. According to the ACR, ACS, and NCCN guidelines, an annual breast MRI exam along with mammogram is recommended if the patient's lifetime risk is 20% or greater. This exam was interpreted at Station ID: [id number]. NOTE: For mammograms, a report in lay terms will be sent to the patient. Approximately 15% of breast malignancies will not be visualized mammographically. In the management of a palpable breast mass, a negative mammogram must not discourage biopsy of a clinically suspicious lesion. Electronically Signed By: Eyal [email or web address]:04/30/2023 10:48:58 letter sent: Normal Exam ACR BI-RADS Category 1: Negative [id number]
== END ==
PROVIDERS: PCP Student in an Organized Health Care Education/Training Program; Referring Provider Student in an Organized Health Care Education/Training Program; Visit Provider Student in an Organized Health Care Education/Training Program
DX: Z12.31 Encounter for screening mammogram for malignant neoplasm of breast (principal)
CPT/HCPCS: 77063; 77067

== ENCOUNTER 2023-07-16 08:24 | Day surgery (SDC) | payer MEDICARE, OTHER, SELFPAY ==
[2023-07-15 09:47] VITALS: BMI 32.2
[2023-07-16] VITALS (12 sets, daily range): BP systolic 119–147; BP diastolic 49–83; PULSE 51–75; RESP 11–18; TEMP 35.1–36.8; O2SAT 91–95; BMI 32.1; BMI 31.8
[2023-07-16] MEDS: LACTATED RINGERS 1,000 ML 42 ML IV ×2 (08:37→11:01)
--- NOTE | 2023-07-16 09:40 | PM.PREOP ---
Pre-operative Note Interval Note History & Physical reviewed/Exam performed by Physician: Yes Changes to H&P: No
--- NOTE | 2023-07-16 09:41 | PM.HP.1 ---
History of Present Illness History of Present Illness Date Patient Seen: 07/16/23 Time Patient Seen: 09:41 Chief complaint: Anterior Repair w/cystoscopy *OPB* Narrative: 77-year-old female presenting for planned anterior repair with cystoscopy for pelvic organ prolapse. She was fitted with a pessary in 2019, and she states that this is annoying and she does not like using it. She feels that the bulge is getting more prominent, and is bothersome all the time. She used to have issues with fully emptying her bladder, however she feels this has improved lately. She denies any leaking. COUNTS INCLUDE 234 BEDS AT THE [facility] Medical History (Updated 04/03/23 @ 14:31 by Sarina Martinez DO) Cystocele Greater trochanteric bursitis of right hip Lumbosacral radiculopathy at L4 Spondylolisthesis at L4-L5 level Lumbar spondylosis Right hip pain Vision disorder Lichen planus Positive PPD Gynecologic disorder Urinary urgency Frequent UTI Diverticular disease Colon polyps H/O vaginal delivery Surgical History Anesthesia History of colonoscopy Superficial varicosities Status post surgery (03/10/13) Family History Sister Cancer Grandfather No problems noted. Grandmother CVA (cerebral vascular accident) Grandfather History of heart disease Grandmother CVA (cerebral vascular accident) Social History household members: spouse Smoking Status: Never smoker alcohol intake: current Meds Home Medications and Allergies Home Medications Medication Instructions Recorded Confirmed Type Calcium (#CALCIUM 500) 500 mg PO BID ##0 11/11/11 07/16/23 History Coenzyme Q10 (COENZYME Q10~) 60 mg PO QDAY ##0 11/02/12 07/16/23 History clobetasol 0.05 %-niacinamide 4 % 1 ea topical PRN PRN dermatitis 03/30/23 07/16/23 History topical ointment estradiol 0.01% (0.1 mg/gram) 1 g vaginal 2XW #42.5 grams 04/27/23 07/16/23 Rx vaginal cream atorvastatin 20 mg tablet (Lipitor) 20 mg PO HS #90 tabs 04/30/23 07/16/23 Rx celecoxib 200 mg capsule (Celebrex) 200 mg PO DAILY #90 caps 04/30/23 07/16/23 Rx levothyroxine 75 mcg tablet 75 mcg PO DAILY #90 tabs 04/30/23 07/16/23 Rx olmesartan 20 mg tablet (Benicar) 20 mg PO QDAY #90 tabs 04/30/23 07/16/23 Rx Allergies Allergy/AdvReac Type Severity Reaction Status Date / Time lisinopril AdvReac Mild Cough Verified 07/16/23 08:46 Review of Systems Review of Systems ROS: Yes All systems reviewed with the patient and are negative except as otherwise documented Exam Vital Signs (past 8 hours): - 07/16/23 09:00 Temperature 97.9 F Pulse Rate 51 L Respiratory Rate 18 Blood Pressure 120/83 Pulse Oximetry 95 Oxygen Delivery Method Room Air Oxygen Delivery Method Room Air Const General: healthy appearing, comfortable and No acute distress Resp Effort & Inspection: normal respiratory effort and able to speak in complete sentences Other: Exam 04/03/23: External Female Exam: normal external appearance Speculum Exam - Vagina: normal appearance of the vagina and normal vaginal discharge Speculum Exam - Cervix: normal appearance of the cervix Bimanual Exam- Vagina & Uterus: normal bimanual exam and uterine size normal Bimanual Exam- Adnexa, other: normal adnexae, No rectocele, cystocele (Stage II, leading edge +1) and No vaginal apex descent Pelvic Support: cystocele (Stage II, leading edge +1) moderate, no retocele noted and vaginal apex not descended Psych Mood: congruent mood Affect: normal affect Assessment & Plan Assessment and plan (1) Cystocele: Qualifiers: Cystocele location: midline Qualified Code(s): N81.11 - Cystocele, midline Status: Acute Assessment & Plan narrative: 77yo F admitted today for planned anterior repair with cystoscopy due to stage 2 pelvic organ prolapse. -2g Ancef preop for ppx -VTE risk low, SCDs for ppx -plan for overnight stay, however pt greatly desires to go home; will readdress postop to see if she is appropriate for same day discharge Surgery consent We discussed the risks/benefits/alternatives to the proposed procedure, to include: -risk of bleeding, requiring medications, blood products, or other procedures as indicated -risk of infection, requiring prolonged hospital stay or other procedures -risk of injury to other structures, including bowel, bladder, blood vessels, nerves, etc. which may also require additional procedures -risk of adverse reaction to anesthesia or medications -risk of venous thromboembolism and associated sequelae -risk of rare complications such as cardiac arrest, or extremely rarely, Patient is aware of the risks, and desires to proceed with planned surgical procedure. Time Spent With Patient Time with patient: less than 30 minutes
[2023-07-16] MEDS: CEFAZOLIN 2 GM/100 ML PREMIX 100 ML IV (10:19)
--- NOTE | 2023-07-16 10:35 | SUR.OPER ---
Lithotomy on padded OR bed, head on pillow, arms secured on padded arm boards at <90 degrees abduction. Legs secured in padded yellow fins stirrups.
[2023-07-16] MEDS: BUPIVACAINE 0.25% (PF) VIAL 30 ML INJ (10:42)
--- NOTE | 2023-07-16 12:00 | PM.OP.1 ---
Operative Date/Time/Diagnoses Date of procedure: 07/16/23 Time of procedure: 10:00 Pre-op diagnosis: Stage II pelvic organ prolapse- cystocele Post-op diagnosis: same Procedure & Clinicians Procedure: Anterior colporrhaphy Cystoscopy Same procedure as scheduled: Yes Indications: 77-year-old female presenting for planned anterior repair with cystoscopy for pelvic organ prolapse. She was fitted with a pessary in 2019, and she states that this is annoying and she does not like using it. She feels that the bulge is getting more prominent, and is bothersome all the time. She used to have issues with fully emptying her bladder, however she feels this has improved lately. She denies any leaking. Surgeon: Sarina Martinez Spinner Hand: Washington Barrera Click Yes if Unassisted: No Anesthesia Type: General Operative Notes Findings: Stage II cystocele, normal vaginal mucosa, normal cervix. Specimen(s): none sent Applied: catheter Estimated Blood Loss (mL): 20 Blood products transfused: none Procedure in detail: The risks, benefits, indications and alternatives of the procedure were reviewed with the patient and informed consent was obtained. The patient was taken to the operating room where general anesthesia was obtained without difficulty. The pt was then placed in the high lithotomy position using yellow-fin stirrups. Sequential compression devices were placed bilaterally for VTE prophylaxis. An exam under anesthesia was then performed and significant for the above findings. Pt was then prepped and draped in the sterile fashion and a Padilla catheter was placed. Two Allis clamps were then placed on the anterior vaginal wall, and the area was injected with 0.25% lidocaine with epinephrine.? A vertical incision was then made on the anterior vaginal wall, and the underlying tissue was then sharply dissected off the vaginal epithelium.? The underlying tissue was then plicated in the midline in 2 layers with 0-Vicryl, with the second layer imbricating over the first layer.? Once hemostasis was assured, the vaginal epithelium was trimmed, then closed in running fashion with 2-0 Vicryl. Good hemostasis was again visualized at the end of the procedure. A moist kerlex vaginal pack was placed.? Sponge, lap, and needle counts were correct x2.? All instruments were removed from the vagina.? The patient was awakened from anesthesia and taken to the recovery room in stable condition with a Padilla catheter in place. Complications: none Post-operative Condition: stable Disposition: PACU Plan for aftercare: Will re-evaluate this afternoon for potential discharge today vs. tomorrow morning.
--- NOTE | 2023-07-16 15:24 | PC.NURSE ---
Addendum entered by Bibi Guajardo R.N. 07/16/23 18:33: Discharge instructions gone over by ETHEL Nice. PIV removed prior to discharge. All belongings with patient. All questions answered. ETHEL Nice escorted patient to exit with her . Original Note: MD Martinez at bedside at 1500. Removed Padilla cathetar + packing. She stated that if patient is able to void before shift change, she may discharge home tonight. Will continue to monitor.
== END 2023-07-16 18:05 | disposition home or self-care (01) ==
LOC: OR 11:55 → AC 12:16
PROVIDERS: PCP Student in an Organized Health Care Education/Training Program; Referring Provider Student in an Organized Health Care Education/Training Program; Visit Provider Student in an Organized Health Care Education/Training Program
PROC: (CPT 57240; principal; 2023-07-16 09:45)
DX: N81.10 Cystocele, unspecified (principal); N81.89 Other female genital prolapse
CPT/HCPCS: 57240; J0690; J1100; J1885; J2250; J2405; J3010; J3490